=== PATIENT | male | born 1965 | race Caucasian/White ===

== ENCOUNTER → 2017-05-30 10:41 | Outpatient (POV) | payer OTHER, SELFPAY | PROVIDERS: Visit Provider Internal Medicine | DX: Z00.00 Encounter for general adult medical examination without abnormal findings (principal) ==

== ENCOUNTER → 2017-06-01 09:11 | Outpatient (REF) | payer OTHER, SELFPAY ==
[2017-06-01 17:54] LABS: Hemoglobin A1C 7.6 % (0.0-7.0)
[2017-06-01 17:55] LABS: Alanine Aminotransferase 24 U/L (12-78); Albumin Level 4.3 gm/dL (3.4-5.0); Albumin/Globulin Ratio 1.1 (1.1-1.8); Alkaline Phosphatase 95 U/L (46-116); Aspartate Amino Transferase 4 U/L (15-37); Bilirubin,Total 0.4 mg/dL (0.2-1.0); Blood Urea Nitrogen 16 mg/dL (7-18); Calcium 9.2 mg/dL (8.5-10.1); Carbon Dioxide 26 mmol/L (21.0-32.0); Chloride 100 mmol/L (98-107); Chol/HDL Ratio 4.5 (1-3.5); Cholesterol 242 mg/dL (140-200); Creatinine,Serum 1.03 mg/dL (0.70-1.30); Estimated Glomerular Filt Rate 76 ml/min (>60); GFR (African American) 92 ML/MIN (>60); Globulin 3.8 gm/dl (1.3-3.2); Glucose 192 mg/dL (74-106); HDL Cholesterol 54 mg/dL (27-67); LDL Cholesterol 146 mg/dL (0-130); Sodium 136 mmol/L (136-145); Total Protein,Serum 8.1 gm/dL (6.4-8.2); Triglycerides 211 mg/dL (30-200); VLDL Cholesterol 42 mg/dL (0-40)
[2017-06-03 18:00] LABS: Vitamin D 25 Hydroxy 16.6 ng/mL (30.0-100.0)
== END ==
LOC: LAB 09:11
PROVIDERS: Visit Provider Nurse Practitioner Family
DX: R53.83 Other fatigue (principal); I10 Essential (primary) hypertension; E11.9 Type 2 diabetes mellitus without complications; J44.9 Chronic obstructive pulmonary disease, unspecified
CPT/HCPCS: 80053; 80061; 82652; 83036

== ENCOUNTER → 2017-06-07 10:27 | Outpatient (CLI) | payer OTHER, SELFPAY ==
--- NOTE | 2017-06-07 10:30 | XR_ITS ---
XR shoulder RT min 2V HISTORY: Right shoulder pain ITS.REASON: pain ORDERING PHYSICIAN: Kamila Peña PATIENT AGE: 51 years COMPARISON: None FINDINGS: There are mild osteoarthritic changes of the acromioclavicular joint with mild bony hypertrophy which may result in impingement upon the supraspinatus tendon and may be better evaluated with MRI if clinically warranted. The glenohumeral joint has an unremarkable appearance. No fracture or dislocation. No lytic or blastic change. IMPRESSION: Mild acromioclavicular arthropathy with hypertrophic changes of the AC joint.
--- NOTE | 2017-06-07 10:38 | XR_ITS ---
XR chest 2V HISTORY: ITS.REASON: CHRONIC OBSTRUCTIVE PULMONARY DISEASE ORDERING PHYSICIAN: Kamila Peña PATIENT AGE: 51 years COMPARISON: None available FINDINGS: The cardiomediastinal silhouette and pulmonary vascularity are within normal limits. There is hyperinflation with hyperlucency consistent with obstructive chronic bronchitis The lungs are clear without infiltrates, suspicious nodules, or pleural effusions. There is a faint nodular opacity overlying the right lower chest to 6 interspace and may be due to nipple shadow may be confirmed with follow-up if clinically warranted. No acute bony abnormalities. IMPRESSION: COPD. No acute finding. Possible nipple shadow right lower chest
== END ==
PROVIDERS: PCP Emergency Medicine; Referring Provider Nurse Practitioner Family; Visit Provider Nurse Practitioner Family
DX: M25.511 Pain in right shoulder (principal)
CPT/HCPCS: 71046; 73030

== ENCOUNTER → 2017-08-31 15:54 | Outpatient (REF) | payer OTHER, SELFPAY ==
[2017-08-31 19:08] LABS: Hemoglobin A1C 9.3 % (0.0-7.0)
== END ==
LOC: LAB 15:54
PROVIDERS: Visit Provider Nurse Practitioner Family
DX: E11.9 Type 2 diabetes mellitus without complications (principal)
CPT/HCPCS: 83036

== ENCOUNTER → 2017-09-05 08:55 | Outpatient (POV) | payer OTHER, SELFPAY | PROVIDERS: Family Provider Emergency Medicine; PCP Emergency Medicine; Visit Provider Internal Medicine | DX: Z00.00 Encounter for general adult medical examination without abnormal findings (principal) ==

== ENCOUNTER → 2017-09-05 09:55 | Outpatient (CLI) | payer OTHER, SELFPAY ==
--- NOTE | 2017-09-05 10:03 | XR_ITS ---
XR chest 2V HISTORY: ITS.REASON: COPD,CURRENT SMOKER,ABNORMAL CXR ORDERING PHYSICIAN: Vernell Samayoa PATIENT AGE: 51 years COMPARISON: 06/07/2017 FINDINGS: The cardiomediastinal silhouette and pulmonary vascularity are within normal limits. No lobar consolidation or collapse. Previously noted nodular opacity overlying the right lower lung zone is not apparent on today's exam and may be due to nipple shadow or nipple artifact. The lungs are clear. Mild hyperinflation consistent with COPD. No acute bony anomalies. IMPRESSION: No acute finding. Previously noted nodular opacity right lower lung zone no longer apparent COPD
== END ==
PROVIDERS: PCP Emergency Medicine; Visit Provider Nurse Practitioner Family
DX: J44.9 Chronic obstructive pulmonary disease, unspecified (principal); R93.8 Abnormal findings on diagnostic imaging of other specified body structures; F17.200 Nicotine dependence, unspecified, uncomplicated
CPT/HCPCS: 71046

== ENCOUNTER → 2017-11-28 16:24 | Outpatient (CLI) | payer OTHER, SELFPAY | PROVIDERS: Visit Provider Nurse Practitioner Family | DX: E11.9 Type 2 diabetes mellitus without complications (principal) ==

== ENCOUNTER → 2018-03-15 12:37 | Outpatient (CLI) | payer OTHER, SELFPAY ==
--- NOTE | 2018-03-15 12:39 | US_ITS ---
US gallbladder Ordering Physician: Kamila Peña Patient Age: 52 years: Male HISTORY: ITS.REASON: pain Nausea vomiting x2 weeks. Upper abdominal pain TECHNIQUE: COMPARISON :CT abdomen and pelvis from March 14, 2018. FINDINGS Pancreas. Fair visualization of pancreas. The head body and medial tail appear grossly satisfactory. No hepatic ductal dilatation. No fluid collection or mass Gallbladder. Small contracted appearance of the gallbladder itself down to 5 cm. with prominent diffuse mildly echogenic edematous gallbladder wall thickening-accounting for the low density appearance on yesterday CT. . ( But no pericholecystic fluid otherwise. No gallstones identified. Scant debris in gallbladder. Comment. Diffuse wall thickening of most typically seen with cholecystitis but can be seen with other hepatobiliary abnormalities.. No associated periportal edema.) Common duct appears normal at hilum of liver measuring less than 2.5 mm. Liver. Liver appears overall satisfactory. Perhaps trace diffuse fatty changes but no focal lesion. No biliary ductal dilatation. Portal vein normal caliber and normal direction flow Right kidney.: Normal size measuring 12.3 cm length. Cortex well-maintained with no hydronephrosis nor mass. No free fluid at Morison's pouch or elsewhere encountered IMPRESSION: ...... Gallbladder. Contracted gallbladder with Prominent diffuse edematous wall thickening . No gallstones evident . Common duct normal caliber . Liver. No significant findings. Only question perhaps subtle diffuse fatty changes. ... Right kidney and pancreas unremarkable
== END ==
PROVIDERS: PCP Nurse Practitioner Family; Visit Provider Nurse Practitioner Family
DX: R10.11 Right upper quadrant pain (principal); R11.2 Nausea with vomiting, unspecified
CPT/HCPCS: 76705

== ENCOUNTER → 2018-03-20 13:39 | Outpatient (CLI) | payer OTHER, SELFPAY ==
[2018-03-20 14:07] LABS: Basophils % 0.6 % (0.1-2.0); Eosinophils # 0.1 K/mm3 (0.0-0.4); Eosinophils % 0.9 % (0.1-12.0); Hematocrit 42.2 % (42.0-52.0); Hemoglobin 13.3 g/dL (14.1-18.0); Lymphocytes # 1.9 K/mm3 (0.7-4.5); Lymphocytes % 29.6 % (10-50); Mean Corpuscular HGB Conc 31.6 g/dL (31.8-35.4); Mean Corpuscular Hemoglobin 29.1 pg (27.0-31.2); Mean Corpuscular Volume 92.2 fl (80-94); Mean Platelet Volume 7.3 fl (7.4-10.4); Monocytes # 0.4 K/mm3 (0.1-1.0); Monocytes % 6.1 % (1.7-9.3); Neutrophils % 62.8 % (37.0-80.0); Platelet Count 285 K/mm3 (142-424); Red Blood Count 4.58 M/mm3 (4.60-6.20); Red Cell Distribution Width 14.6 % (11.5-17.5); White Blood Count 6.4 K/mm3 (4.8-10.8)
[2018-03-20 14:18] LABS: INR 1.11 (0.9-1.1); Prothrombin Time 11.4 seconds (9.4-11.8)
[2018-03-20 14:54] LABS: Alanine Aminotransferase 301 U/L (12-78); Albumin Level 2.3 gm/dL (3.4-5.0); Albumin/Globulin Ratio 0.5 (1.1-1.8); Alkaline Phosphatase 288 U/L (46-116); Anion Gap 14.7 mEq/L (5-15); Aspartate Amino Transferase 208 U/L (15-37); Bilirubin,Total 4.2 mg/dL (0.2-1.0); Blood Urea Nitrogen 14 mg/dL (7-18); Calcium 8.1 mg/dL (8.5-10.1); Carbon Dioxide 26 mmol/L (21.0-32.0); Chloride 96 mmol/L (98-107); Creatinine,Serum 1.26 mg/dL (0.70-1.30); Estimated Glomerular Filt Rate 60 ml/min (>60); GFR (African American) 72 ML/MIN (>60); Globulin 4.9 gm/dl (1.3-3.2); Glucose 293 mg/dL (74-106); Potassium 4.7 mmoL/L (3.5-5.1); Sodium 132 mmol/L (136-145); Total Protein,Serum 7.2 gm/dL (6.4-8.2)
== END ==
PROVIDERS: Visit Provider Nurse Practitioner Family
DX: R17 Unspecified jaundice (principal); R79.1 Abnormal coagulation profile
CPT/HCPCS: 36415; 80053; 85025; 85610

== ENCOUNTER → 2018-04-06 12:08 | Outpatient (CLI) | payer OTHER, SELFPAY ==
[2018-04-06 13:49] LABS: Hemoglobin A1C 8.1 % (0.0-7.0)
[2018-04-06 13:55] LABS: Alanine Aminotransferase 202 U/L (12-78); Albumin Level 3.1 gm/dL (3.4-5.0); Albumin/Globulin Ratio 0.7 (1.1-1.8); Alkaline Phosphatase 187 U/L (46-116); Anion Gap 16.4 mEq/L (5-15); Aspartate Amino Transferase 96 U/L (15-37); Bilirubin,Total 1.3 mg/dL (0.2-1.0); Blood Urea Nitrogen 17 mg/dL (7-18); Carbon Dioxide 24 mmol/L (21.0-32.0); Chloride 100 mmol/L (98-107); Creatinine,Serum 0.96 mg/dL (0.70-1.30); Estimated Glomerular Filt Rate 82 ml/min (>60); GFR (African American) 99 ML/MIN (>60); Globulin 4.7 gm/dl (1.3-3.2); Potassium 4.4 mmoL/L (3.5-5.1); Sodium 136 mmol/L (136-145); Total Protein,Serum 7.8 gm/dL (6.4-8.2)
[2018-04-06 14:39] LABS: Glucose 343 mg/dL (74-106)
== END ==
PROVIDERS: Visit Provider Nurse Practitioner Family
DX: E11.9 Type 2 diabetes mellitus without complications (principal); R94.5 Abnormal results of liver function studies
CPT/HCPCS: 36415; 80053; 83036

== ENCOUNTER → 2018-07-31 15:16 | Outpatient (CLI) | payer OTHER, SELFPAY ==
[2018-07-31 15:28] LABS: Basophils # 0.1 K/mm3 (0-0.2); Basophils % 0.7 % (0.1-2.0); Eosinophils # 0.3 K/mm3 (0.0-0.4); Eosinophils % 3.3 % (0.1-12.0); Hematocrit 46.7 % (42.0-52.0); Lymphocytes # 2.8 K/mm3 (0.7-4.5); Lymphocytes % 30.1 % (10-50); Mean Corpuscular HGB Conc 34.2 g/dL (31.8-35.4); Mean Corpuscular Hemoglobin 30.4 pg (27.0-31.2); Mean Corpuscular Volume 88.9 fl (80-94); Mean Platelet Volume 8.4 fl (7.4-10.4); Monocytes # 0.5 K/mm3 (0.1-1.0); Monocytes % 5.7 % (1.7-9.3); Neutrophils # 5.6 K/mm3 (1.8-7.8); Neutrophils % 60.1 % (37.0-80.0); Platelet Count 257 K/mm3 (142-424); Red Blood Count 5.25 M/mm3 (4.60-6.20); Red Cell Distribution Width 13.3 % (11.5-17.5); White Blood Count 9.3 K/mm3 (4.8-10.8)
[2018-07-31 16:27] LABS: Alanine Aminotransferase 35 U/L (12-78); Albumin/Globulin Ratio 1.2 (1.1-1.8); Alkaline Phosphatase 79 U/L (46-116); Anion Gap 17.4 mEq/L (5-15); Aspartate Amino Transferase 29 U/L (15-37); Bilirubin,Total 0.4 mg/dL (0.2-1.0); Blood Urea Nitrogen 14 mg/dL (7-18); Calcium 9.2 mg/dL (8.5-10.1); Carbon Dioxide 23 mmol/L (21.0-32.0); Chloride 104 mmol/L (98-107); Estimated Glomerular Filt Rate 70 ml/min (>60); GFR (African American) 85 ML/MIN (>60); Globulin 3.3 gm/dl (1.3-3.2); Glucose 199 mg/dL (74-106); Potassium 4.4 mmoL/L (3.5-5.1); Sodium 140 mmol/L (136-145); Total Protein,Serum 7.3 gm/dL (6.4-8.2)
[2018-07-31 17:01] LABS: Hemoglobin A1C 10.2 % (0.0-7.0)
== END ==
PROVIDERS: Visit Provider Emergency Medicine
DX: E11.9 Type 2 diabetes mellitus without complications (principal); Z79.84 Long term (current) use of oral hypoglycemic drugs
CPT/HCPCS: 80053; 83036; 85025

== ENCOUNTER → 2019-09-17 13:11 | Outpatient (CLI) | payer OTHER, SELFPAY ==
[2019-09-17 15:42] LABS: Basophils # 0.1 K/mm3 (0-0.2); Basophils % 0.5 % (0.1-2.0); Eosinophils # 0.3 K/mm3 (0.0-0.4); Eosinophils % 3.6 % (0.1-12.0); Hematocrit 47.8 % (42.0-52.0); Hemoglobin 16.5 g/dL (14.1-18.0); Lymphocytes # 2.3 K/mm3 (0.7-4.5); Lymphocytes % 24.4 % (10-50); Mean Corpuscular HGB Conc 34.6 g/dL (31.8-35.4); Mean Corpuscular Hemoglobin 30.1 pg (27.0-31.2); Mean Corpuscular Volume 87.2 fl (80-94); Mean Platelet Volume 9.8 fl (7.4-10.4); Monocytes # 0.6 K/mm3 (0.1-1.0); Monocytes % 5.9 % (1.7-9.3); Neutrophils # 6.1 K/mm3 (1.8-7.8); Neutrophils % 65.6 % (37.0-80.0); Platelet Count 268 K/mm3 (142-424); Red Blood Count 5.48 M/mm3 (4.60-6.20); Red Cell Distribution Width 13.4 % (11.5-17.5); White Blood Count 9.4 K/mm3 (4.8-10.8)
[2019-09-17 15:47] LABS: Alanine Aminotransferase 22 U/L (12-78); Albumin Level 4.8 g/dl (3.5-5.0); Albumin/Globulin Ratio 1.6 (1.1-1.8); Alkaline Phosphatase 89 U/L (38-126); Anion Gap 15.8 mEq/L (5-15); Aspartate Amino Transferase 24 U/L (17-59); Bilirubin,Total 0.6 mg/dl (0.2-1.3); Blood Urea Nitrogen 29 mg/dl (9-20); Carbon Dioxide 27 mmol/L (22.0-30.0); Chloride 98 mmol/L (98-107); Cholesterol 158 mg/dl (140-200); Estimated Glomerular Filt Rate 70 ml/min (>60); GFR (African American) 84 ML/MIN (>60); Glucose 323 mg/dl (74-100); HDL Cholesterol 52 mg/dl (40-60); Potassium 4.8 mmoL/L (3.5-5.1); Sodium 136 mmol/L (136-145); Total Protein,Serum 7.8 g/dl (6.3-8.2); Triglycerides 141 mg/dl (30-150); VLDL Cholesterol 28 mg/dL (0-40)
[2019-09-17 15:59] LABS: C-Reactive Protein 5.6 mg/L (0-4); Direct LDL Cholesterol 104.73 mg/dL (100-129)
[2019-09-17 16:05] LABS: T4 (Thyroxine) 10.2 ug/dl (5.53-11.0)
[2019-09-17 16:18] LABS: Thyroid Stimulating Hormone 1.22 uIU/mL (0.465-4.68)
[2019-09-17 17:14] LABS: Hemoglobin A1C 12.2 % (4.0-6.0)
[2019-09-19 09:13] LABS: Vitamin D 25 Hydroxy 27.3 ng/mL (30.0-100.0)
[2019-09-19 10:14] LABS: Creatinine, Urine 372.3 mg/dL (Not Estab.); Microalbumin, Urine 70.3 ug/mL (Not Estab.)
== END ==
PROVIDERS: Visit Provider Nurse Practitioner Family
DX: E11.9 Type 2 diabetes mellitus without complications (principal); I10 Essential (primary) hypertension; E55.9 Vitamin D deficiency, unspecified; J44.9 Chronic obstructive pulmonary disease, unspecified
CPT/HCPCS: 80053; 80061; 82043; 82570; 82652; 83036; 84436; 84443; 85025; 86140

== ENCOUNTER 2020-02-07 22:36 | Emergency (ER) | payer OTHER, SELFPAY ==
[2020-02-07 22:37] VITALS: BP 128/99; PULSE 116; RESP 16; TEMP 36.8; O2SAT 95; BMI 32.1
--- NOTE | 2020-02-07 22:52 | XR_ITS ---
PROCEDURE: XR CHEST 2V CLINICAL HISTORY: syncope/fall Smoker, fall with injury and pain, trauma protocol COMPARISON: CR CXR CHEST(2 VIEWS-NOT PORTABLE) from 01/01/2016 DX CXR2V XR chest 2V from 06/07/2017 CR CXR2V XR chest 2V from 09/05/2017 FINDINGS: The cardiomediastinal silhouette and pulmonary vascularity are within normal limits. The lungs are clear without infiltrates, suspicious nodules, or pleural effusions. No acute bony abnormalities. IMPRESSION: No acute findings. Dictated by: Cruz Cheung MD 02/08/2020 08:19 Cruz Cheung MD in [facility] 02/08/2020 08:19
--- NOTE | 2020-02-07 22:52 | CT_ITS ---
PROCEDURE: CT HEAD/BRAIN WO CON CLINICAL INDICATION: syncopal episode Head injury with headache/pain, contusion, abrasion or hematoma COMPARISON: No exams were available for comparison TECHNIQUE: Axial images obtained. All CT scans at the facility use one or more dose reduction, viz: automated exposure control, ma/kV adjustment per patient size (including targeted exams where dose is matched to indication, i.e. head), or iterative reconstruction technique. FINDINGS: No midline shift, mass effect, intracranial hemorrhage, hydrocephalus, or extra-axial fluid collection is evident. There is some soft tissue swelling in the frontal region of the scalp on the left the calvarium has an unremarkable appearance. No mastoid effusion. No sinus air-fluid level. IMPRESSION: 1. No acute intracranial findings. 2. Small left frontal scalp hematoma Dictated by: Cruz Cheung MD 02/08/2020 09:41 Cruz Cheung MD in [facility] 02/08/2020 09:41
--- NOTE | 2020-02-07 22:53 | XR_ITS ---
PROCEDURE: XR PELVIS 1-2V CLINICAL INDICATION: fall Pain following injury COMPARISON: No exams were available for comparison TECHNIQUE: XR Pelvis AP View FINDINGS: No fracture or dislocation is evident. No significant degenerative change. No lytic or blastic change. IMPRESSION: No acute findings. Dictated by: Cruz Cheung MD 02/08/2020 08:21 Cruz Cheung MD in [facility] 02/08/2020 08:21
--- NOTE | 2020-02-07 22:54 | ECG_ITS ---
APPROVED REPORT Exam: Resting ECG HR:114 bpm ECG Measurements Heart Rate 114 AXES NJ 164 P 75 QRSd 74 QRS -45 QT 330 T 56 QTc 454 Conclusion Sinus tachycardia Left axis deviation Pulmonary disease pattern Abnormal ECG Electronically signed by : Geo Luna, 02/09/2020 06:26:32
--- NOTE | 2020-02-07 22:54 | CT_ITS ---
PROCEDURE: CT CERVICAL SPINE WO CON CLINICAL INDICATION: fall Neck injury with pain, contusion/abrasion or hematoma, cervical sprain/strain the COMPARISON: No exams were available for comparison TECHNIQUE: Axial images obtained with sagittal and coronal reformats. All CT scans at the facility use one or more dose reduction, viz: automated exposure control, ma/kV adjustment per patient size (including targeted exams where dose is matched to indication, i.e. head), or iterative reconstruction technique. Axial spiral CT scanning performed of the cervical spine beginning at the base of the skull and continuing to the upper T-spine. 3-D multiplanar reconstruction with 3-D manipulation of volumetric data set in image rendering was completed by the radiologist and/or technologist with the supervision of the radiologist on independent workstation. FINDINGS: Normal alignment. No acute fracture or dislocation. There is mild cervical spondylosis. C2-C3: Mild right foraminal narrowing from facet and uncovertebral hypertrophy. C3-C4: Degenerate disc disease with left-sided uncovertebral hypertrophy and left-sided foraminal narrowing. C4-C5: Degenerate disc disease with uncovertebral hypertrophy on the left with foraminal narrowing and canal stenosis. C5-C6: Degenerate disc disease with endplate ridging and bulging disc with severe canal stenosis of 8 mm and severe bilateral lateral recess and foraminal narrowing. C6-C7: Degenerate disc disease with endplate ridging with severe canal stenosis of 8 mm and severe left lateral recess and foraminal narrowing and moderate right foraminal narrowing. Scattered small nodes are present in the neck.. Mild prominence of the tonsils. Paraseptal emphysematous changes in the lung apices IMPRESSION: 1. No acute fracture. 2. Multilevel cervical spondylosis with canal stenosis and lateral recess and foraminal narrowing. Please see above for detailed description at each level Dictated by: Cruz Cheung MD 02/08/2020 09:45 Cruz Cheung MD in [facility] 02/08/2020 09:45
[2020-02-07 23:05] VITALS: BP 130/80; BP 138/89; BP 138/91; PULSE 110; PULSE 113; PULSE 114
[2020-02-07 23:20] LABS: Basophils # 0.1 K/mm3 (0-0.2); Basophils % 0.3 % (0.1-2.0); Eosinophils # 0.2 K/mm3 (0.0-0.4); Eosinophils % 1.2 % (0.1-12.0); Hematocrit 44.6 % (42.0-52.0); Hemoglobin 15.1 g/dL (14.1-18.0); Lymphocytes # 3.6 K/mm3 (0.7-4.5); Lymphocytes % 18.2 % (10-50); Mean Corpuscular HGB Conc 33.8 g/dL (31.8-35.4); Mean Corpuscular Hemoglobin 30.8 pg (27.0-31.2); Mean Corpuscular Volume 91.3 fl (80-94); Mean Platelet Volume 7.8 fl (7.4-10.4); Monocytes # 0.9 K/mm3 (0.1-1.0); Monocytes % 4.3 % (1.7-9.3); Neutrophils # 14.9 K/mm3 (1.8-7.8); Neutrophils % 75.9 % (37.0-80.0); Platelet Count 249 K/mm3 (142-424); Red Blood Count 4.88 M/mm3 (4.60-6.20); Red Cell Distribution Width 13.3 % (11.5-17.5); White Blood Count 19.6 K/mm3 (4.8-10.8)
[2020-02-07 23:23] LABS: Chloride 98 mmol/L (98-107); Potassium 4.6 mmoL/L (3.5-5.1); Sodium 137 mmol/L (136-145)
[2020-02-07 23:26] LABS: Anion Gap 15.6 mEq/L (5-15); Blood Urea Nitrogen 31 mg/dl (9-20); Calcium 9.5 mg/dl (8.4-10.2); Carbon Dioxide 28 mmol/L (22.0-30.0); Creatinine Clearance Estimated 103 mL/min (50-200); Estimated Glomerular Filt Rate 63 ml/min (>60); GFR (African American) 76 ML/MIN (>60); Glucose 345 mg/dl (74-100)
[2020-02-07 23:32] LABS: Amphetamine/Metha Screen,Urine Negative ng/ml (<1000); Benzodiazepines Screen,Urine Negative ng/ml (<200)
[2020-02-07 23:33] LABS: Barbiturates Screen,Urine Negative ng/ml (<200)
[2020-02-07 23:34] LABS: Cannabinoid Screen,Urine Negative ng/ml (<50); Cocaine Screen,Urine Negative ng/ml (<300); Ethyl Alcohol < 10 mg/dl (0-10)
[2020-02-07 23:35] LABS: Methadone Screen,Urine Negative ng/ml (<300); Opiate Screen,Urine Negative ng/ml (<300)
--- NOTE | 2020-02-07 23:35 | HMH.EDSYNC ---
ED Disposition Clinical Impression: Renal insufficiency, Obesity (BMI 30.0-34.9) Syncopal episodes Qualifiers: Syncope type: unspecified Qualified Code(s): R55 - Syncope and collapse Diabetes mellitus Qualifiers: Diabetes mellitus type: type 2 Diabetes mellitus long-term insulin use: unspecified medical terminologist insulin use status Diabetes mellitus complication status: with other specified complication Qualified Code(s): E11.69 - Type 2 diabetes mellitus with other specified complication Disposition: Home, Self-Care Condition on Discharge: Good Instructions: DI for Syncope in Adults (Fainting) Additional Instructions: no driving or hazardous activity at this time - call pcp monday Referrals: Denny Hussein MD [Primary Care Provider] - - Critical Care Critical Care Time: No Attestation: On 02/07/20, the high probability of a clinically significant, sudden or life threatening deterioration of the following system(s) required my full and direct attention, intervention and personal management. The time I documented below is in addition to time spent performing reported procedures but includes the following listed in this critical care notation. Medical Decision Making - Medical Records Medical records reviewed: Yes: I reviewed the patient's medical records. - Ivan Inquiry Pt receiving controlled substance: No Vital Signs: 02/07/20 22:37 02/07/20 23:05 Temperature 98.2 F Temperature Source Oral Pulse Rate [Left Radial] 116 H Pulse Rate [Orthostatic Lying] 110 H Pulse Rate [Orthostatic Sitting] 113 H Pulse Rate [Orthostatic Standing] 114 H Respiratory Rate 16 Blood Pressure [Orthostatic Lying] 138/91 H Blood Pressure [Orthostatic Sitting] 138/89 Blood Pressure [Orthostatic Standing] 130/80 Blood Pressure [Right Arm] 128/99 H Blood Pressure Mean [Right Arm] 108 Blood Pressure Source [Right Arm] Automatic Cuff Blood Pressure Position [Right Arm] Sitting 02 Sat by Pulse Oximetry 95 Oxygen Delivery Method Room Air - Lab Data Lab results reviewed: Yes: I reviewed the patient's lab results. Lab Results 02/07/20 23:10: WBC 19.6 H, RBC 4.88, Hgb 15.1, Hct 44.6, MCV 91.3, MCH 30.8, MCHC 33.8, RDW 13.3, Plt Count 249, MPV 7.8, Neut % (Auto) 75.9, Lymph % (Auto) 18.2, [place] % (Auto) 4.3, Eos % (Auto) 1.2, Baso % (Auto) 0.3, Neut # (Auto) 14.9 H, Lymph # (Auto) 3.6, [place] # (Auto) 0.9, Eos # (Auto) 0.2, Baso # (Auto) 0.1, Total Counted 100, Neutrophils % (Manual) 79 H, Band Neutrophils % 6.0, Lymphocytes % (Manual) 15, Platelet Estimate Normal, RBC Morphology Normal 02/07/20 23:10: Sodium 137, Potassium 4.6, Chloride 98, Carbon Dioxide 28, Anion Gap 15.6 H, BUN 31 H, Creatinine 1.20, Estimated Creat Clear 103, Estimated GFR 63, Est GFR ( Amer) 76, Glucose 345 H, Calcium 9.5, Troponin I < 0.01 02/07/20 23:10: Urine Opiates Screen Negative, Urine Methadone Screen Negative, Ur Barbituates Screen Negative, Ur Phencyclidine Scrn Negative, Ur Amphetamines Screen Negative, U Benzodiazepines Scrn Negative, Urine Cocaine Screen Negative, U Marijuana (THC) Screen Negative 02/07/20 23:10: Plasma/Serum Alcohol < 10 Result diagrams: 02/07/20 23:10 02/07/20 23:10 Orders (Tests/Meds): ED MEDICATIONS Generic Name Dose Route Start Last Admin Trade Name Freq PRN Reason Stop Dose Admin Sodium Chloride 1,000 mls @ 999 mls/hr 02/07/20 23:15 Sod Chlor 0.9% 1000ml Bag IV 02/08/20 00:15 .Q1H1M [facility] ORDERS Category Date Time Status CT cervical spine wo con Stat Cat Scan 02/07/20 22:[address] head/brain wo con Stat Cat Scan 02/07/20 22:52 Taken XR chest 2V Stat Exams 02/07/20 22:52 Taken XR pelvis 1-2V Stat Exams 02/07/20 22:53 Taken Troponin I Q3H Lab 02/08/20 02:00 Ordered Troponin I Q3H Lab 02/08/20 05:00 Ordered UA [Urinalysis and Microscopic] Stat Lab 02/08/20 00:00 Received - Radiology Data #1 Image(s): Chest, Pelvis Image Reviewed: Yes I reviewed the patient's
[2020-02-07 23:36] LABS: MANUAL DIFFERENTIAL MANUAL DIFFERENTIAL (MANUAL DIFF); Phencyclidine Screen,Urine Negative ng/ml (<25)
[2020-02-07 23:37] VITALS: BP 131/80; PULSE 111; RESP 18; O2SAT 95
[2020-02-07 23:45] LABS: Lymphocytes % 15 % (10-50); Neutrophils % 79 % (42-76); Platelet Estimate Normal; RBC Morphology Normal; Total Cells Counted 100
[2020-02-07 23:49] LABS: Troponin I < 0.01 ng/ml (0.00-0.034)
[2020-02-08] VITALS: BP 128/91; PULSE 108; RESP 18; O2SAT 94
[2020-02-08 00:17] LABS: Microscopic, Urine URINE MICROSCOPIC (MICROSCOPIC)
[2020-02-08 00:24] LABS: Appearance,Urine CLEAR (Clear); Bilirubin,Urine Negative (Negative); Blood, Urine Negative (Negative); Color,Urine YELLOW (Yellow); Glucose,Urine (UA) 3+ (Negative); Ketones,Urine Negative (Negative); Leukocyte Esterase,Urine Negative (Negative); Nitrate,Urine Negative (Negative); PH,Urine 5.5 (5.0-8.5); Protein,Urine Negative (Negative); Specific Gravity, Urine >= 1.030 (1.005-1.030); Urobilinogen,Urine 0.2 EU/dl (0.2)
[2020-02-08 00:29] LABS: Amorphous Sediment,Urine Trace /lpf
[2020-02-08 00:30] VITALS: BP 132/96; PULSE 107; RESP 18; O2SAT 94
--- NOTE | 2020-02-08 00:52 | PC.NURSE ---
RESP. at bedside applying holter monitor
[2020-02-08 01:06] VITALS: BP 136/95; PULSE 105; RESP 16; TEMP 36.7; O2SAT 95
== END 2020-02-08 01:14 | disposition home or self-care (01) ==
PROVIDERS: Emergency Provider Emergency Medicine; PCP Emergency Medicine
DX: N28.9 Disorder of kidney and ureter, unspecified (principal); E66.9 Obesity, unspecified; Z68.32 Body mass index [BMI] 32.0-32.9, adult; E11.65 Type 2 diabetes mellitus with hyperglycemia; I10 Essential (primary) hypertension; E78.5 Hyperlipidemia, unspecified; J44.9 Chronic obstructive pulmonary disease, unspecified; Z79.899 Other long term (current) drug therapy; F17.210 Nicotine dependence, cigarettes, uncomplicated; Z88.0 Allergy status to penicillin
CPT/HCPCS: 70450; 71046; 72125; 72170; 80048; 80305; 81001; 84484; 85007; 85025; 93005; 93225; 93226; 99284

== ENCOUNTER → 2020-02-27 07:20 | Outpatient (CLI) | payer OTHER, SELFPAY ==
--- NOTE | 2020-02-27 | CT_ITS ---
PROCEDURE: CT CHEST WO CON CLINICAL INDICATION: SYNCOPE patient passed out twice in one month. full cardiac workup. no pain COMPARISON: CT [id number] CT abdomen pelvis w con from 03/14/2018 TECHNIQUE: Axial images obtained with sagittal and coronal reformats. All CT scans at the facility use one or more dose reduction, viz: automated exposure control, ma/kV adjustment per patient size (including targeted exams where dose is matched to indication, i.e. head), or iterative reconstruction technique. FINDINGS: HEART AND MEDIASTINAL STRUCTURES: No mediastinal or hilar mass or adenopathy. Coronary artery calcifications are present. There are calcified nodes in the mediastinum and ludwig. There is mild thickening of the distal esophagus which is nonspecific. LUNGS AND PLEURAL SPACES: Changes of COPD with evidence of old granulomatous disease. Is a 6 mm nodule within the superior aspect of the right lower lobe laterally. This may be some very slightly larger compared to 03/14/[address] Continued follow-up is suggested. Calcified granuloma is present in the left lower lobe. A 3 mm nodules present the left lower lobe laterally and 1 in the left lower lobe centrally at the diaphragm area. There is some bronchial thickening in the left perihilar region not significantly changed. BONY STRUCTURES: Degenerative changes thoracic spine UPPER ABDOMEN: Left adrenal gland is enlarged. The density however favors an adenoma. This is not significantly changed. ADDITIONAL FINDINGS: No other significant abnormalities. IMPRESSION: 1. COPD with old granulomatous disease. 2. 6 mm noncalcified nodule right lower lobe which appears slightly larger from 03/14/2018. This could be related to the slice orientation. Six-month follow-up suggested. 3. Coronary artery calcifications are present. 4. Left adrenal adenoma 5. Mild thickening of the distal esophagus nonspecific but could be related to esophagitis Dictated by: Cruz Cheung MD 02/28/2020 08:48 Cruz Cheung MD in [facility] 02/28/2020 08:48
--- NOTE | 2020-02-27 07:24 | CA_ITS ---
APPROVED REPORT EXAM: Comprehensive 2D, Doppler, and color-flow Echocardiogram Personal Health Coach: Yamel Braun RDCS Ht: 5 ft 11 in Wt: 231lbs BSA: 2.24 BP: 107/69 mmHg Indications: SYNCOPE COPD HTN DM SOA 2D Dimensions LVOT 2.07 cm (M/F) 1.5-2.5 M-Mode Dimensions RVDd 2.62 cm (0.9-2.6) LA Diam 3.71 cm (1.9-4.0) LVDd 4.51 cm (3.5-5.7) Ao Diam 3.71 cm (2.0-3.7) LVDs 3.38 cm (3.5-5.7) IVSd 1.21 cm (0.6-1.1) PWd 1.13 cm (0.6-1.1) EF (Teich) 49.60% FS 25.10% EDV (Teich) 92.90 mL ESV (Teich) 46.80 mL LV Diastology E Decel Time 180.00 (160-240 msec) E/A Ratio 1.0 MED E' 6.20 (< 7 cm/sec) E'/MED E' Ratio 11.00 (>14) LAT E' 9.60 (<10 cm/sec) E/LAT E' Ratio 7.10 (>14) Mitral Valve MV E Max Josh. 68.00 (40-130 cm/s) MV A Velocity 65.00 (40-130 cm/s) E/A Ratio 1.05 MV Decel. Time 180.00 (160-240 ms) MV PHT 53.00 ms Left Ventricle Atrium is mildly enlarged, left ventricle is normal size, mild concentric left ventricular hypertrophy, visually estimated ejection fraction 55% with no regional wall motion abnormality, grade 1 diastolic dysfunction seen without tissue Doppler evidence of raise left atrial pressure. Right Ventricle Right atrium and right ventricle are normal size and contractility. Aortic Valve Aortic valve is minimally thickened and fibrosed, there is no aortic stenosis or aortic insufficiency. Mitral Valve Mitral valve is grossly normal, there is trace mitral regurgitation. Tricuspid Valve Tricuspid valve grossly normal, there is trace tricuspid regurgitation. Tricuspid regurgitation jet velocity is inadequate for calculation of the right ventricular systolic pressure. Pulmonic Valve Pulmonic valve is poorly visualized. Great Vessels Aortic root is normal size. Pericardium No significant pericardial effusion noted. Conclusion 1. Mildly enlarged left atrium, normal left ventricular size, mild concentric left ventricular hypertrophy, visually estimated ejection fraction 55% with no regional wall motion abnormality, grade 1 diastolic dysfunction seen without tissue Doppler evidence of raise left atrial pressure. 2. Trace mitral and tricuspid regurgitation. 3. No significant pericardial effusion noted. Electronically signed by : Julito Gonzalez, 02/27/2020 11:52:28
== END ==
PROVIDERS: PCP Emergency Medicine; Visit Provider Physician Assistant
DX: J44.9 Chronic obstructive pulmonary disease, unspecified (principal); R55 Syncope and collapse
CPT/HCPCS: 71250; 93306

== ENCOUNTER → 2020-03-14 10:44 | Outpatient (CLI) | payer OTHER, SELFPAY ==
[2020-03-14 11:19] LABS: Basophils # 0.1 K/mm3 (0-0.2); Basophils % 0.6 % (0.1-2.0); Eosinophils # 0.3 K/mm3 (0.0-0.4); Eosinophils % 2.8 % (0.1-12.0); Hematocrit 50.3 % (42.0-52.0); Hemoglobin 16.1 g/dL (14.1-18.0); Lymphocytes # 1.9 K/mm3 (0.7-4.5); Lymphocytes % 19.1 % (10-50); Mean Corpuscular Hemoglobin 30.3 pg (27.0-31.2); Mean Corpuscular Volume 94.8 fl (80-94); Mean Platelet Volume 8.3 fl (7.4-10.4); Monocytes # 0.5 K/mm3 (0.1-1.0); Monocytes % 5.2 % (1.7-9.3); Neutrophils # 7.3 K/mm3 (1.8-7.8); Neutrophils % 72.4 % (37.0-80.0); Platelet Count 284 K/mm3 (142-424); Red Blood Count 5.31 M/mm3 (4.60-6.20); Red Cell Distribution Width 13.7 % (11.5-17.5); White Blood Count 10.1 K/mm3 (4.8-10.8)
[2020-03-14 12:44] LABS: Coronavirus 19 IgG Antibody Negative (Negative); Coronavirus 19 IgM Antibody Negative (Negative)
[2020-03-14 13:29] LABS: Chloride 92 mmol/L (98-107); Sodium 134 mmol/L (136-145)
[2020-03-14 13:32] LABS: Alanine Aminotransferase 17 U/L (12-78); Albumin Level 4.8 g/dl (3.5-5.0); Albumin/Globulin Ratio 1.8 (1.1-1.8); Alkaline Phosphatase 89 U/L (38-126); Aspartate Amino Transferase 21 U/L (17-59); Bilirubin,Total 0.6 mg/dl (0.2-1.3); Blood Urea Nitrogen 23 mg/dl (9-20); Calcium 9.9 mg/dl (8.4-10.2); Carbon Dioxide 32 mmol/L (22.0-30.0); Estimated Glomerular Filt Rate 78 ml/min (>60); GFR (African American) 94 ML/MIN (>60); Globulin 2.6 g/dL (1.3-3.2); Total Protein,Serum 7.4 g/dl (6.3-8.2)
[2020-03-14 13:57] LABS: Anion Gap 15.9 mEq/L (5-15)
[2020-03-14 14:00] LABS: Glucose 389 mg/dl (74-100); Potassium 5.9 mmoL/L (3.5-5.1)
== END ==
PROVIDERS: Visit Provider Internal Medicine
DX: I25.10 Atherosclerotic heart disease of native coronary artery without angina pectoris (principal); Z01.818 Encounter for other preprocedural examination
CPT/HCPCS: 36415; 80053; 85025; 86328

== ENCOUNTER 2020-03-16 08:11 | Day surgery (SDC) | payer OTHER, SELFPAY ==
[2020-03-16] VITALS (13 sets, daily range): BP systolic 101–154; BP diastolic 70–95; PULSE 72–94; RESP 15–20; TEMP 36.8; O2SAT 88–98; BMI 32.2
--- NOTE | 2020-03-16 07:31 | IR_ITS ---
APPROVED REPORT Patient Location: Outpatient Learning And Development Director: CASSIE Howard RT (R) PROCEDURES Left heart catheterization Left ventriculogram Selective coronary angiogram INDICATION Coronary artery disease, Angina pectoris Informed consent was obtained prior to the procedure. COMPLICATIONS none Estimated Blood Loss: less than 10 mls TECHNIQUE One percent lidocaine used to anesthetize the right anterior aspect of the wrist. The right radial artery was accessed via the Seldinger technique. A 6 Malian sheath was placed in the right radial artery. 2.5 mg of verapamil, 800 mcg of nitroglycerin, 1mg Lidocaine and 5000 U Heparin were given through the arterial sheath. The trap catheter was also used to perform left heart catheterization, left ventriculogram and selective coronary angiogram. At the end of the procedure the sheath was removed good hemostasis was achieved using Traclet band, patient was transferred to the postop holding area in stable condition. 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 The mid LAD is tortuous and has 20% stenoses along tortuous bands. A large first diagonal artery has a proximal 40 to 50% stenosis and is 2 mm in diameter. The circumflex artery Nondominant large and normal The right coronary artery Dominant with mild 10% mid vessel luminal irregularities The RAYA ventriculogram reveals Normal 65% The left ventricular end-diastolic pressure 20 mmHg IMPRESSION Mild nonflow known coronary disease in the main 3 arteries with moderate nonflow limiting disease and a 2 mm first diagonal artery Normal ejection fraction Mild elevated LVEDP PLAN 1. Medical management with risk factor modification Electronically signed by : Ubaldo [place], 03/16/2020 10:29:43
[2020-03-16 08:57] LABS: Potassium 4.9 mmoL/L (3.5-5.1)
[2020-03-16 09:07] LABS: Chloride 99 mmol/L (98-107); Potassium 4.9 mmoL/L (3.5-5.1); Sodium 136 mmol/L (136-145)
[2020-03-16 09:10] LABS: Anion Gap 13.9 mEq/L (5-15); Blood Urea Nitrogen 23 mg/dl (9-20); Calcium 9.7 mg/dl (8.4-10.2); Carbon Dioxide 28 mmol/L (22.0-30.0); Creatinine Clearance Estimated 137 mL/min (50-200); Estimated Glomerular Filt Rate 88 ml/min (>60); GFR (African American) 106 ML/MIN (>60); Glucose 223 mg/dl (74-100)
== END 2020-03-16 13:53 | disposition home or self-care (01) ==
LOC: CATHLAB 08:12
PROVIDERS: PCP Emergency Medicine; Visit Provider Internal Medicine
DX: E66.9 Obesity, unspecified; E78.5 Hyperlipidemia, unspecified; F17.200 Nicotine dependence, unspecified, uncomplicated; I10 Essential (primary) hypertension; J44.9 Chronic obstructive pulmonary disease, unspecified; I25.110 Atherosclerotic heart disease of native coronary artery with unstable angina pectoris; R06.00 Dyspnea, unspecified; R55 Syncope and collapse; E11.9 Type 2 diabetes mellitus without complications; Z79.84 Long term (current) use of oral hypoglycemic drugs; Z79.899 Other long term (current) drug therapy; Z79.82 Long term (current) use of aspirin
CPT/HCPCS: 80048; 84132; 93458; 99152; C1725; C1760; C1769; J1644; Q9967

== ENCOUNTER 2020-10-17 13:45 | Inpatient (IN) | payer OTHER, SELFPAY ==
[2020-10-17 13:47] VITALS: BP 159/94; PULSE 107; RESP 18; TEMP 36.4; O2SAT 94; BMI 32.1
--- NOTE | 2020-10-17 13:53 | ECG_ITS ---
APPROVED REPORT Exam: Resting ECG HR:108 bpm ECG Measurements Heart Rate 108 AXES [place] 166 P 67 QRSd 86 QRS -69 QT 330 T 27 QTc 442 Conclusion Sinus tachycardia Left axis deviation Pulmonary disease pattern Septal infarct, age undetermined T wave abnormality, consider anterior ischemia Abnormal ECG Electronically signed by : Geo Luna, 10/18/2020 13:48:38
[2020-10-17 13:54] VITALS: BP 121/75; PULSE 113; RESP 20
--- NOTE | 2020-10-17 14:13 | HMH.EDGENADL ---
ED Disposition Clinical Impression: Hyperglycemia, Hyperkalemia, KHOA (acute kidney injury) Opiate overdose Qualifiers: Encounter type: initial encounter Injury intent: accidental or unintentional Qualified Code(s): T40.601A - Poisoning by unspecified narcotics, accidental (unintentional), initial encounter Rhabdomyolysis Qualifiers: Rhabdomyolysis type: non-traumatic Qualified Code(s): M62.82 - Rhabdomyolysis Leukocytosis Qualifiers: Leukocytosis type: unspecified Qualified Code(s): D72.829 - Elevated white blood cell count, unspecified Disposition: Admitted as Observation Condition on Discharge: Serious - Critical Care Critical Care Time: Yes Attestation: On , the high probability of a clinically significant, sudden or life threatening deterioration of the following system(s) required my full and direct attention, intervention and personal management. The time I documented below is in addition to time spent performing reported procedures but includes the following listed in this critical care notation. Total Critical Care Time: 35 Vital system(s) involved:: Metabolic Failure My critical care processes included: Assessment & monitoring of V/S, Initial and Re-exams, Data Review/Interpretation, Coordinating Care, Medication Orders and management, Documentation Medical Decision Making - Ivan Inquiry Pt receiving controlled substance: No Vital Signs: 10/17/20 13:47 10/17/20 13:54 10/17/20 14:55 Temperature 97.5 F L Temperature Source Oral Pulse Rate 113 H 112 H Pulse Rate [Right] 107 H Respiratory Rate 18 20 13 Blood Pressure 121/75 134/83 Blood Pressure [Right Arm] 159/94 H Blood Pressure Mean [Right Arm] 115 Blood Pressure Source Automatic Cuff Blood Pressure Position Sitting 02 Sat by Pulse Oximetry 94 L 90 L Oxygen Delivery Method Room Air 10/17/20 16:38 Temperature 98.6 F Temperature Source Oral Pulse Rate 98 H Pulse Rate [Right] Respiratory Rate 18 Blood Pressure 121/80 Blood Pressure [Right Arm] Blood Pressure Mean [Right Arm] Blood Pressure Source Blood Pressure Position 02 Sat by Pulse Oximetry Oxygen Delivery Method Room Air - Lab Data Lab Results 10/17/20 14:00: WBC 22.1 H*, RBC 5.17, Hgb 15.5, Hct 47.7, MCV 92.2, MCH 29.9, MCHC 32.4, RDW 14.1, Plt Count 227, MPV 8.0, Neut % (Auto) 91.5 H, Lymph % (Auto) 4.8 L, [place] % (Auto) 3.1, Eos % (Auto) 0.4, Baso % (Auto) 0.3, Neut # (Auto) 20.3 H, Lymph # (Auto) 1.1, [place] # (Auto) 0.7, Eos # (Auto) 0.1, Baso # (Auto) 0.1, Total Counted 100, Neutrophils % (Manual) 82 H, Lymphocytes % (Manual) 11, Monocytes % (Manual) 7, Platelet Estimate Normal, RBC Morphology Normal 10/17/20 14:00: Sodium 134 L, Potassium 6.0 H, Chloride 94 L, Carbon Dioxide 25, Anion Gap 21.0 H, BUN 42 H, Creatinine 1.40 H, Estimated Creat Clear 88, Estimated GFR 53 L, Est GFR ( Amer) 64, Glucose 914 H*, Calcium 8.8, Total Bilirubin 0.5, AST 104 H, ALT 409 H*, Alkaline Phosphatase 146 H, Total Protein 7.1, Albumin 4.3, Globulin 2.8, Albumin/Globulin Ratio 1.5 10/17/20 14:00: Magnesium 2.2, Total Creatine Kinase 233 H, Troponin I 0.05 H 10/17/20 14:00: Plasma/Serum Alcohol < 10 10/17/20 14:00: Acetone Level None detected 10/17/20 14:30: Urine Color Yellow, Urine Appearance Clear, Urine pH 6.0, Ur Specific [place] <= 1.005, Urine Protein Negative, Urine Glucose (UA) 3+, Urine Ketones Negative, Urine Blood 2+, Urine Nitrate Negative, Urine Bilirubin Negative, Urine Urobilinogen 0.2, Ur Leukocyte Esterase Negative, Urine RBC 3-5, Urine WBC None, Ur Squamous Epith Cells None, Urine Bacteria None 10/17/20 14:30: Urine Opiates Screen Negative, Urine Methadone Screen Negative, Ur Barbituates Screen Negative, Ur Phencyclidine Scrn Negative, Ur Amphetamines Screen Negative, U Benzodiazepines Scrn Negative, Urine Cocaine Screen Negative, U Marijuana (THC) Screen Negative 10/17/20 14:33: VBG pH 7.23 L, VBG pCO2 51.0, VBG pO2 52.0 H, VBG HCO3 20.9 L, VBG Total CO2 22.4 L,
[2020-10-17 14:16] LABS: Chloride 94 mmol/L (98-107); Sodium 134 mmol/L (136-145)
[2020-10-17 14:17] LABS: Basophils # 0.1 K/mm3 (0-0.2); Basophils % 0.3 % (0.1-2.0); Eosinophils # 0.1 K/mm3 (0.0-0.4); Eosinophils % 0.4 % (0.1-12.0); Hematocrit 47.7 % (42.0-52.0); Hemoglobin 15.5 g/dL (14.1-18.0); Lymphocytes # 1.1 K/mm3 (0.7-4.5); Lymphocytes % 4.8 % (10-50); Mean Corpuscular HGB Conc 32.4 g/dL (31.8-35.4); Mean Corpuscular Hemoglobin 29.9 pg (27.0-31.2); Mean Corpuscular Volume 92.2 fl (80-94); Monocytes # 0.7 K/mm3 (0.1-1.0); Monocytes % 3.1 % (1.7-9.3); Neutrophils # 20.3 K/mm3 (1.8-7.8); Neutrophils % 91.5 % (37.0-80.0); Platelet Count 227 K/mm3 (142-424); Red Blood Count 5.17 M/mm3 (4.60-6.20); Red Cell Distribution Width 14.1 % (11.5-17.5); White Blood Count 22.1 K/mm3 (4.8-10.8)
[2020-10-17 14:19] LABS: Alanine Aminotransferase 409 U/L (12-78); Albumin Level 4.3 g/dl (3.5-5.0); Albumin/Globulin Ratio 1.5 (1.1-1.8); Alkaline Phosphatase 146 U/L (38-126); Aspartate Amino Transferase 104 U/L (17-59); Bilirubin,Total 0.5 mg/dl (0.2-1.3); Blood Urea Nitrogen 42 mg/dl (9-20); Carbon Dioxide 25 mmol/L (22.0-30.0); Creatinine Clearance Estimated 88 mL/min (50-200); Estimated Glomerular Filt Rate 53 ml/min (>60); GFR (African American) 64 ML/MIN (>60); Globulin 2.8 g/dL (1.3-3.2); MANUAL DIFFERENTIAL MANUAL DIFFERENTIAL (MANUAL DIFF); Total Protein,Serum 7.1 g/dl (6.3-8.2)
[2020-10-17 14:20] LABS: Calcium 8.8 mg/dl (8.4-10.2)
--- NOTE | 2020-10-17 14:24 | PC.NURSE ---
Pt vomited profusely into floor several times.
[2020-10-17 14:29] LABS: Glucose 914 mg/dl (74-100)
--- NOTE | 2020-10-17 14:29 | PC.NURSE ---
MD aware of potassium and glucose critical
[2020-10-17 14:31] LABS: Lymphocytes % 11 % (10-50); Monocytes % 7 % (2-9); Neutrophils % 82 % (42-76); Platelet Estimate Normal; RBC Morphology Normal; Total Cells Counted 100
--- NOTE | 2020-10-17 14:31 | XR_ITS ---
PROCEDURE INFORMATION: Exam: XR Chest Exam date and time: 10/17/2020 2:31 PM Age: 54 years old Clinical indication: Other: Over dose; Additional info: Od TECHNIQUE: Imaging protocol: XR of the chest. Views: 1 view. COMPARISON: CT CHEST WO CON 02/27/2020 7:35 AM FINDINGS: Lungs: Emphysematous change, interstitial prominence, chronic granulomatous disease. Pleural spaces: No pleural effusion. Heart/Mediastinum: No cardiomegaly. Bones/joints: Degenerative change. IMPRESSION: Emphysematous change, interstitial prominence, chronic granulomatous disease.
[2020-10-17 14:35] LABS: Microscopic, Urine URINE MICROSCOPIC (MICROSCOPIC)
[2020-10-17 14:42] LABS: Creatine Kinase 233 U/L (55-170)
[2020-10-17 14:43] LABS: Appearance,Urine CLEAR (Clear); Bilirubin,Urine Negative (Negative); Blood, Urine 2+ (Negative); Color,Urine YELLOW (Yellow); Glucose,Urine (UA) 3+ (Negative); Ketones,Urine Negative (Negative); Leukocyte Esterase,Urine Negative (Negative); Nitrate,Urine Negative (Negative); Protein,Urine Negative (Negative); Specific Gravity, Urine <= 1.005 (1.005-1.030); Urobilinogen,Urine 0.2 EU/dl (0.2)
[2020-10-17 14:43] LABS: Magnesium 2.2 mg/dl (1.6-2.3)
[2020-10-17 14:45] LABS: Acetone, Serum (Rapid) None Detected (None Detect)
[2020-10-17 14:48] LABS: Ethyl Alcohol < 10 mg/dl (0-10)
[2020-10-17 14:54] LABS: Troponin I 0.05 ng/ml (0.00-0.034)
[2020-10-17 14:55] VITALS: BP 134/83; PULSE 112; RESP 13; O2SAT 90
[2020-10-17 14:55] LABS: Benzodiazepines Screen,Urine Negative ng/ml (<200)
[2020-10-17 14:56] LABS: Amphetamine/Metha Screen,Urine Negative ng/ml (<1000)
[2020-10-17 14:57] LABS: Barbiturates Screen,Urine Negative ng/ml (<200); Cannabinoid Screen,Urine Negative ng/ml (<50)
[2020-10-17 15:00] LABS: Opiate Screen,Urine Negative ng/ml (<300)
[2020-10-17 15:01] LABS: Phencyclidine Screen,Urine Negative ng/ml (<25)
[2020-10-17 15:10] LABS: VBG Base Excess -6.7 mmol/L (-2.4-2.3); VBG HCO3 20.9 mmol/L (23-30); VBG Oxygen Saturation 83.5 % (50-70); VBG PH 7.23 mmol/L (7.31-7.41); VBG Total CO2 22.4 mmol/L (23-27)
[2020-10-17 15:15] LABS: Methadone Screen,Urine Negative ng/ml (<300)
[2020-10-17 15:16] LABS: Cocaine Screen,Urine Negative ng/ml (<300)
[2020-10-17 15:17] LABS: Coronavirus 19, PCR Not Detected (NotDetected); Influenza A, PCR Not Detected (NotDetected); Influenza B, PCR Not Detected (NotDetected)
[2020-10-17 15:26] LABS: Lactic Acid 2.2 mmol/L (0.7-2.1)
--- NOTE | 2020-10-17 15:40 | PC.NURSE ---
Glucometer reading HI , blood draw glucose ordered.
--- NOTE | 2020-10-17 16:25 | PC.NURSE ---
Critical lab value: glucose 756. Dr. Shultz notified.
[2020-10-17 16:26] LABS: Glucose,Random 756 mg/dL (74-100)
[2020-10-17 16:31] VITALS: BMI 28.0
[2020-10-17 16:38] VITALS: BP 121/80; PULSE 98; RESP 18; TEMP 37; O2SAT 94
--- NOTE | 2020-10-17 16:57 | PC.NURSE ---
pt arrived to the floor at this time.
[2020-10-17 17:14] LABS: POC Glucose,Bedside 579 (70-110)
[2020-10-17 17:27] VITALS: BP 121/80; PULSE 88; RESP 20; TEMP 37; O2SAT 93
[2020-10-17 17:52] LABS: Glucose,Random 687 mg/dL (74-100)
--- NOTE | 2020-10-17 17:53 | PC.NURSE ---
Spoke to Merary in the lab. Pt glucose is 687. 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
[2020-10-17 18:03] LABS: Troponin I 0.11 ng/ml (0.00-0.034)
--- NOTE | 2020-10-17 18:12 | HMH.HP ---
*Admission Date: 10/17/20 *Chief complaint: elevated glucose,opiate overdose *History of present illness: 54 yr old male presented to ED via ambulance. Per pt he talked to his daughter at 8 am and then she was unable to reach him. at 1130 her boyfriend went back to the house and was still unable to get him to answer the door and called 911 for welfare check. daughter says about 45 mins later they arrived. Pt was found on his kitchen floor unresponsive. Pt admits to snorting heroin yesterday but states none today. Pt states for over one week he has lost feeling in rt arm and leg and having problems using them. Pt states he is taking all his DM meds. pt admitted for elevated KCL, WBC,trop, cre, ABG abnormal and monitoring. [facility] History I have reviewed the patient's past medical history: Yes Medical History: Reports:: Chronic Obstructive Pulmonary Disease (COPD), Diabetes Mellitus Type 2, Hyperlipidemia, Hypertension Denies:: Seizures *Have you ever received a pneumonia vaccine?: No *Have you received a flu vaccine this season?: No Other Surgeries: Yes: Cardiac Catheterization, Other Amputation: No Fractures: Yes - *Social History Smoking Status: Current every day smoker Tobacco Type: cigarettes # Packs/Day (cigarettes): 1 Alcohol Intake: never Alcohol Intake Frequency:: other Substance Use Type: denies use *Occupational Status:: disabled Housing: house Household Members: none *Travel in the last 8 weeks: None Family Hx:: Heart Attack Review of Systems - Review of Systems Review of systems:: pertinent systems reviewed and negative unless documented below - Constitutional Denies body ache(s), Denies fatigue, Denies lack of energy - Eyes Denies change in vision - ENT Denies bleeding gums - *Cardiovascular Denies chest pain at rest, Denies chest pain with activity - *Respiratory Denies chest congestion - *Gastrointestinal Denies belching, Denies bright, red blood in stools - *Genitourinary Denies urinary frequency - *Musculoskeletal Reports muscle weakness, Reports numbness, Reports tingling, Denies joint pain - Integumentary/Breasts Denies rash - *Neurologic Denies headache(s), Denies numbness, Denies weakness - Psychiatric Denies lack of enjoyment, Denies anxiety - Endocrine Denies excessive sweating - Hematologic/Lymphatic Denies easy bruising - Allergic/Immunologic Denies itchy eyes Meds Home Medications Medication Instructions Recorded Confirmed Type aspirin 81 mg tablet,delayed 81 mg PO DAILY #90 tab 01/21/20 10/17/20 Rx release Albuterol Sulfate [Proventil Hfa] 1 puff INHALATION DAILY 02/08/20 10/17/20 History Metformin HCl [Glucophage] 1,000 mg PO BID 02/08/20 10/17/20 History Sitagliptin Phosphate [Januvia] 100 mg PO DAILY 02/08/20 10/17/20 History glipizide 5 mg tablet 5 mg PO DAILY tab 03/09/20 10/17/20 History fluticasone furoate 100 1 inh INHALATION DAILY #60 each 04/05/20 10/17/20 Rx mcg-vilanterol 25 mcg/dose inhalation powder Atorvastatin Calcium [Lipitor 10mg 10 mg PO DAILY 10/17/20 10/17/20 History Tab] lisinopriL [Prinivil 10mg Tablet] 10 mg PO DAILY 10/17/20 10/17/20 History Allergies Allergy/AdvReac Type Severity Reaction Status Date / Time Penicillins [PENICILLINS] Allergy Unknown Verified 03/23/20 12:57 Exam Vital signs and Labs for Last 24 Hours: Temp Pulse Resp BP Pulse Ox 98.6 F 88 20 121/80 93 L 10/17/20 17:27 10/17/20 17:27 10/17/20 17:27 10/17/20 17:27 10/17/20 17:27 Laboratory Results - last 24 hr 10/17/20 14:00: WBC 22.1 H*, RBC 5.17, Hgb 15.5, Hct 47.7, MCV 92.2, MCH 29.9, MCHC 32.4, RDW 14.1, Plt Count 227, MPV 8.0, Neut % (Auto) 91.5 H, Lymph % (Auto) 4.8 L, [place] % (Auto) 3.1, Eos % (Auto) 0.4, Baso % (Auto) 0.3, Neut # (Auto) 20.3 H, Lymph # (Auto) 1.1, [place] # (Auto) 0.7, Eos # (Auto) 0.1, Baso # (Auto) 0.1, Total Counted 100, Neutrophils % (Manual) 82 H, Lymphocytes % (Manual) 11, Monocytes % (Manual) 7, Pl
--- NOTE | 2020-10-17 18:27 | CT_ITS ---
PROCEDURE INFORMATION: Exam: CT Head With Contrast Exam date and time: 10/17/20 06:27 PM Age: 54 years old Clinical indication: Numbness / parasthesia; Patient HX: R/O stroke, right hand not working properly TECHNIQUE: Imaging protocol: Computed tomography of the head with intravenous contrast. Radiation optimization: All CT scans at this facility use at least one of these dose optimization techniques: automated exposure control; mA and/or kV adjustment per patient size (includes targeted exams where dose is matched to clinical indication); or iterative reconstruction. Contrast material: ISOVUE; Contrast volume: 100 ml; Contrast route: IV; COMPARISON: CT HEAD/BRAIN WO CON 02/07/20 11:21 PM FINDINGS: Brain: Unremarkable white matter. No mass effect. No abnormal enhancing lesions. Cerebral ventricles: Unremarkable. No ventriculomegaly. Bones/joints: Unremarkable. No acute fracture. Paranasal sinuses: Visualized sinuses are unremarkable. No fluid levels. Mastoid air cells: Visualized mastoid air cells are well aerated. Soft tissues: Unremarkable. IMPRESSION: No acute intracranial abnormality.
[2020-10-17 19:16] LABS: Reflex Lactic Add Lactic Reflex
[2020-10-17 20:00] VITALS: BP 101/75; PULSE 86; PULSE 90; RESP 16; TEMP 36.4; O2SAT 95
[2020-10-17 21:03] LABS: POC Glucose,Bedside 321 (70-110)
[2020-10-17 21:28] LABS: Chloride 101 mmol/L (98-107)
[2020-10-17 21:29] LABS: Potassium 4.3 mmoL/L (3.5-5.1); Sodium 139 mmol/L (136-145)
[2020-10-17 21:31] LABS: Blood Urea Nitrogen 40 mg/dl (9-20); Creatinine Clearance Estimated 98 mL/min (50-200); Estimated Glomerular Filt Rate 69 ml/min (>60); GFR (African American) 84 ML/MIN (>60)
[2020-10-17 21:32] LABS: Anion Gap 13.3 mEq/L (5-15); Calcium 8.5 mg/dl (8.4-10.2); Carbon Dioxide 29 mmol/L (22.0-30.0); Glucose 391 mg/dl (74-100)
[2020-10-17 21:36] LABS: Lactic Acid Follow Up (RFLX 1) 2.6 mmol/L (0.7-2.1)
[2020-10-17 21:56] LABS: Troponin I 0.11 ng/ml (0.00-0.034)
[2020-10-17 23:23] LABS: Reflex Lactic (2 hrs) Add Lactic Reflex
[2020-10-18] VITALS (10 sets, daily range): BP systolic 116–144; BP diastolic 70–77; PULSE 48–83; RESP 16–20; TEMP 36.5–37; O2SAT 94–100; BMI 28.7
[2020-10-18 01:26] LABS: Lactic Acid Follow up (RFLX 2) 1.5 mmol/L (0.7-2.1)
--- NOTE | 2020-10-18 04:19 | PC.NURSE ---
Pt is A/O x4. No acute changes this shift. Pt slept well all night. Pt's 02 declined to mid 80's while pt was sleeping, applied 2L NC and pt remains in high 90's. IV patent with NS @ 150ml/hr. Pt is able to make needs known to staff. Call light within reach, VSS, no concerns at this time. Will continue to monitor.
[2020-10-18 05:31] LABS: POC Glucose,Bedside 131 (70-110)
--- NOTE | 2020-10-18 08:35 | P.CONPHA_ITS ---
[facility] VTE Monitoring - Patient Demographics Admission date: 10/18/20 Report Date: 10/18/20 Time: 08:35 Allergies/Adverse Reactions: Patient Allergies Penicillins [PENICILLINS] Allergy (Unknown, Verified 03/23/20 12:57) Height: 1.8 m Weight: 93.128 kg Patient Problems: Current Active Problems Opiate overdose (Acute) Hyperglycemia (Acute) Hyperkalemia (Acute) KHOA (acute kidney injury) (Acute) Rhabdomyolysis (Acute) Leukocytosis (Acute) COPD (chronic obstructive pulmonary disease) (Acute) Diabetes mellitus (Chronic) - VTE Risk Labs: VTE Related Lab Results Hgb 15.5 g/dL (14.1-18.0) 10/17/20 14:00 Hct 47.7 % (42.0-52.0) 10/17/20 14:00 Plt Count 227 K/mm3 (142-424) 10/17/20 14:00 BUN 40 mg/dl (9-20) H 10/17/20 20:30 Creatinine 1.10 mg/dl (0.66-1.25) D 10/17/20 20:30 Estimated Creat Clear 98 mL/min (50-200) 10/17/20 20:30 Was VTE Risk Assessment Performed: Yes VTE Score: 3 VTE Risk Level: Low Risk Clinical Trial Participant: No - Prophylaxis VTE Prophylaxis Ordered?: Yes Types of VTE Prophylaxis: TEDS Knee High
[2020-10-18 09:22] LABS: Basophils # 0.1 K/mm3 (0-0.2); Basophils % 0.6 % (0.1-2.0); Eosinophils # 0.2 K/mm3 (0.0-0.4); Eosinophils % 1.9 % (0.1-12.0); Hematocrit 39.3 % (42.0-52.0); Lymphocytes # 2.9 K/mm3 (0.7-4.5); Lymphocytes % 24.6 % (10-50); Mean Corpuscular HGB Conc 33.8 g/dL (31.8-35.4); Mean Corpuscular Hemoglobin 29.8 pg (27.0-31.2); Mean Corpuscular Volume 88.2 fl (80-94); Mean Platelet Volume 8.2 fl (7.4-10.4); Monocytes # 0.5 K/mm3 (0.1-1.0); Monocytes % 4.2 % (1.7-9.3); Neutrophils # 8.2 K/mm3 (1.8-7.8); Neutrophils % 68.7 % (37.0-80.0); Platelet Count 131 K/mm3 (142-424); Red Blood Count 4.46 M/mm3 (4.60-6.20); Red Cell Distribution Width 14.5 % (11.5-17.5); White Blood Count 11.9 K/mm3 (4.8-10.8)
[2020-10-18 09:24] LABS: Hemoglobin 13.3 g/dL (14.1-18.0)
[2020-10-18 09:42] LABS: Anion Gap 8.1 mEq/L (5-15); Blood Urea Nitrogen 31 mg/dl (9-20); Calcium 7.8 mg/dl (8.4-10.2); Carbon Dioxide 32 mmol/L (22.0-30.0); Chloride 98 mmol/L (98-107); Creatinine Clearance Estimated 137 mL/min (50-200); Estimated Glomerular Filt Rate 100 ml/min (>60); GFR (African American) 121 ML/MIN (>60); Glucose 271 mg/dl (74-100); Potassium 4.1 mmoL/L (3.5-5.1); Sodium 134 mmol/L (136-145)
--- NOTE | 2020-10-18 09:42 | HMH.ACPN2 ---
Internal Medicine - PN: Subj *Date: 10/19/20 *Time: 07:36 Interval history: doing better but still with rt sided parasthesia - we discussed drug use Exam Vital signs and Labs for Last 24 Hours: Temp Pulse Resp BP Pulse Ox 97.9 F 72 18 118/74 99 10/18/20 07:29 10/18/20 07:29 10/18/20 07:29 10/18/20 07:29 10/18/20 07:29 Laboratory Results - last 24 hr 10/17/20 14:00: WBC 22.1 H*, RBC 5.17, Hgb 15.5, Hct 47.7, MCV 92.2, MCH 29.9, MCHC 32.4, RDW 14.1, Plt Count 227, MPV 8.0, Neut % (Auto) 91.5 H, Lymph % (Auto) 4.8 L, [place] % (Auto) 3.1, Eos % (Auto) 0.4, Baso % (Auto) 0.3, Neut # (Auto) 20.3 H, Lymph # (Auto) 1.1, [place] # (Auto) 0.7, Eos # (Auto) 0.1, Baso # (Auto) 0.1, Total Counted 100, Neutrophils % (Manual) 82 H, Lymphocytes % (Manual) 11, Monocytes % (Manual) 7, Platelet Estimate Normal, RBC Morphology Normal 10/17/20 14:00: Sodium 134 L, Potassium 6.0 H, Chloride 94 L, Carbon Dioxide 25, Anion Gap 21.0 H, BUN 42 H, Creatinine 1.40 H, Estimated Creat Clear 88, Estimated GFR 53 L, Est GFR ( Amer) 64, Glucose 914 H*, Calcium 8.8, Total Bilirubin 0.5, AST 104 H, ALT 409 H*, Alkaline Phosphatase 146 H, Total Protein 7.1, Albumin 4.3, Globulin 2.8, Albumin/Globulin Ratio 1.5 10/17/20 14:00: Magnesium 2.2, Total Creatine Kinase 233 H, Troponin I 0.05 H 10/17/20 14:00: Plasma/Serum Alcohol < 10 10/17/20 14:00: Acetone Level None detected 10/17/20 14:30: Urine Color Yellow, Urine Appearance Clear, Urine pH 6.0, Ur Specific [place] <= 1.005, Urine Protein Negative, Urine Glucose (UA) 3+, Urine Ketones Negative, Urine Blood 2+, Urine Nitrate Negative, Urine Bilirubin Negative, Urine Urobilinogen 0.2, Ur Leukocyte Esterase Negative, Urine RBC 3-5, Urine WBC None, Ur Squamous Epith Cells None, Urine Bacteria None 10/17/20 14:30: Urine Opiates Screen Negative, Urine Methadone Screen Negative, Ur Barbituates Screen Negative, Ur Phencyclidine Scrn Negative, Ur Amphetamines Screen Negative, U Benzodiazepines Scrn Negative, Urine Cocaine Screen Negative, U Marijuana (THC) Screen Negative 10/17/20 14:33: VBG pH 7.23 L, VBG pCO2 51.0, VBG pO2 52.0 H, VBG HCO3 20.9 L, VBG Total CO2 22.4 L, VBG O2 Saturation 83.5 H, VBG Base Excess -6.7 L 10/17/20 14:50: Lactate 2.2 H 10/17/20 15:00: SARS-CoV-2 (PCR) Not detected, Influenza A Untype (PCR) Not detected, Influenza Type B (PCR) Not detected 10/17/20 15:50: Random Glucose 756 H* 10/17/20 17:05: POC Glucose 579 H* 10/17/20 17:24: Random Glucose 687 H* 10/17/20 17:35: Troponin I 0.11 H 10/17/20 20:30: Troponin I 0.11 H 10/17/20 20:30: Sodium 139, Potassium 4.3 D, Chloride 101, Carbon Dioxide 29, Anion Gap 13.3, BUN 40 H, Creatinine 1.10 D, Estimated Creat Clear 98, Estimated GFR 69, Est GFR ( Amer) 84 D, Glucose 391 H D, Calcium 8.5 10/17/20 20:30: Lactate 2.6 H 10/17/20 20:55: POC Glucose 321 H* 10/18/20 01:12: Lactate 1.5 10/18/20 05:16: POC Glucose 131 H 10/18/20 09:10: WBC 11.9 H D, RBC 4.46 L, Hgb 13.3 L D, Hct 39.3 L, MCV 88.2, MCH 29.8, MCHC 33.8, RDW 14.5, Plt Count 131 L D, MPV 8.2, Neut % (Auto) 68.7, Lymph % (Auto) 24.6, [place] % (Auto) 4.2, Eos % (Auto) 1.9, Baso % (Auto) 0.6, Neut # (Auto) 8.2 H, Lymph # (Auto) 2.9, [place] # (Auto) 0.5, Eos # (Auto) 0.2, Baso # (Auto) 0.1 I & O for Last 24 hours: Intake & Output 10/15/20 10/16/20 10/17/20 10/18/20 11:59 11:59 11:59 11:59 Intake Total 2587 / 2587 Output Total 800 / 800 Balance 1787 / 1787 Weight 205 lb 5 oz - Constitutional no acute distress - *Routine HEENT Exam Head: Present: normocephalic Eye: Present: EOMI, PERRL ENT: Present: mucous membranes dry - *Routine Neck Exam Present: supple - *Routine Respiratory Exam Present: decreased breath sounds, rhonchi - *Routine Cardiovascular Exam Present: RRR, murmur - *Routine Abdominal Exam Present: soft - *Routine Extremities Exam Absent: calf tenderness - *Routine Skin Exam Present: intact - *Routine Neurological Exam Present: alert, or
--- NOTE | 2020-10-18 09:44 | XR_ITS ---
PROCEDURE INFORMATION: Exam: XR Chest Exam date and time: 10/18/2020 9:44 AM Age: 54 years old Clinical indication: Cough TECHNIQUE: Imaging protocol: XR of the chest. Views: 2 views. COMPARISON: CR XR CHEST PORTABLE 10/17/2020 2:47 PM FINDINGS: Tubes, catheters and devices: Overlying EKG wires Lungs: Unremarkable. No consolidation. Pleural spaces: Unremarkable. No pleural effusion. No pneumothorax. Heart/Mediastinum: Unremarkable. No cardiomegaly. Bones/joints: Unremarkable. IMPRESSION: No acute process
[2020-10-18 09:49] LABS: Creatine Kinase 2262 U/L (55-170)
[2020-10-18 11:51] LABS: POC Glucose,Bedside 302 (70-110)
[2020-10-18 16:46] LABS: POC Glucose,Bedside 337 (70-110)
--- NOTE | 2020-10-18 17:54 | PC.NURSE ---
Pt has remained on RA this entire shift w/ o2 sats >90%. Pt has required insulin per sliding scale x2 this shift. Pt has ambulated frequently in his RA independently w/ steady gait and balance. Pt remains NSR on tele. No other acute changes or complaints at this time. Will continue to monitor.
[2020-10-18 20:08] LABS: POC Glucose,Bedside 298 (70-110)
[2020-10-19] VITALS: BP 111/51; PULSE 64; PULSE 80; RESP 18; TEMP 36.6; O2SAT 98
--- NOTE | 2020-10-19 03:17 | PC.NURSE ---
Pt is A/Ox4. Pt has been pleasant this shift. Pt is RA with stats >90. Lungs are CTA. BS are active x4. At beginning of shift pt stated his right hand and right foot feel numb at times. Pt states he made MD aware this morning of the numbness, stated the numbness in the hand has been going on for about a week, but the right foot is a newer onset. Pt has been NS on tele. Admin meds per JUN. Pt is able to make needs known to staff, VSS. Call light within reach, will continue to monitor.
[2020-10-19 04:00] VITALS: BP 112/52; PULSE 68; PULSE 70; RESP 18; TEMP 36.6; O2SAT 98
[2020-10-19 05:18] LABS: POC Glucose,Bedside 375 (70-110)
[2020-10-19 05:19] VITALS: BMI 29.4
[2020-10-19 06:04] VITALS: PULSE 69; PULSE 72
[2020-10-19 07:29] VITALS: BP 121/70; PULSE 92; RESP 18; TEMP 36.9; O2SAT 97
[2020-10-19 08:00] VITALS: PULSE 80
--- NOTE | 2020-10-19 08:00 | CA_ITS ---
APPROVED REPORT EXAM: Comprehensive 2D, Doppler, and color-flow Echocardiogram [employer] Footballer: Liana Nowak CRT Ht: 5 ft 10 in Wt: 205lbs BSA: 2.11 BP: 121/80 mmHg Indications: Chest Pain, OD heroin 2D Dimensions LVOT 2.10 cm (M/F) 1.5-2.5 LA Volume 41.80 mL LA Volume Index 19.80 mL/m2 (M/F) 16-34 M-Mode Dimensions RVDd 3.20 cm (0.9-2.6) LA Diam 3.50 cm (1.9-4.0) LVDd 5.02 cm (3.5-5.7) Ao Diam 4.64 cm (2.0-3.7) LVDs 2.60 cm (3.5-5.7) IVSd 1.28 cm (0.6-1.1) PWd 1.21 cm (0.6-1.1) EF (Teich) 79.40% FS 48.20% EDV (Teich) 119.30 mL TAPSE 2.47 (<1.7) ESV (Teich) 24.60 mL LV Diastology E Decel Time 183.00 (160-240 msec) E/A Ratio 0.98 MED E' 6.10 (< 7 cm/sec) MED A' 8.60 cm/s E'/MED E' Ratio 12.10 (>14) LAT E' 7.00 (<10 cm/sec) LAT A' 11.80 cm/s E/LAT E' Ratio 10.54 (>14) Aortic Valve AO Peak GR. 8.00 mmHg Mitral Valve MV A Velocity 75.00 (40-130 cm/s) E/A Ratio 0.98 MV Decel. Time 183.00 (160-240 ms) Pulmonary Valve PV Peak Velocity 72.00 (50-150 cm/s) Tricuspid Valve TR P. Velocity 192.00 cm/s RAP Estimate 10.00 mmHg RVSP 24.80 mmHg Left Ventricle Left atrium is mildly enlarged, left ventricle is normal size, visually estimated ejection fraction 55% with no regional wall motion abnormality, diastolic parameters are inconclusive. Right Ventricle Right atrium and right ventricle are mildly enlarged with normal contractility. Aortic Valve Aortic valve is minimally thickened and fibrosed, there is no aortic stenosis or aortic insufficiency. Mitral Valve Mitral valve is grossly normal, there is trace mitral regurgitation. Tricuspid Valve Tricuspid valve grossly normal, there is trace tricuspid regurgitation, tricuspid regurgitation jet velocity is inadequate for calculation of the right ventricular systolic pressure. Pulmonic Valve Pulmonic valve is poorly visualized. Great Vessels Aortic root is normal size. Pericardium No significant pericardial effusion noted. Conclusion 1. Mild biatrial abdomen, normal left ventricular size, visually estimated ejection fraction 55% with no regional wall motion abnormality, diastolic parameters are inconclusive. 2. Trace mitral and tricuspid regurgitation. 3. No significant pericardial effusion noted. Electronically signed by : Julito Gonzalez, 10/19/2020 22:28:13
--- NOTE | 2020-10-19 10:37 | HMH.CNCARD ---
History of Present Illness Consult date: 10/19/20 Requesting physician: Denny Hussein Chief complaint: Elevated troponin Additional Medical History:: 1. Diabetes mellitus, type II 2. Tobacco use 3. Left heart catheterization, 03/2020, mild CAD of the main arteries with moderate CAD of diagonal branch. 4. Hypertension 5. Hyperlipidemia 6. History of recreational drug use History of present illness: 54 yr old male presented to ED via ambulance. Per pt he talked to his daughter at 8 am and then she was unable to reach him. at 1130 her boyfriend went back to the house and was still unable to get him to answer the door and called 911 for welfare check. daughter says about 45 mins later they arrived. Pt was found on his kitchen floor unresponsive. Pt admits to snorting heroin yesterday but states none today. Pt states for over one week he has lost feeling in rt arm and leg and having problems using them. Pt states he is taking all his DM meds. pt admitted for elevated KCL, WBC,trop, cre, ABG abnormal and monitoring The above per Dr. Hussein H&P Patient denies any chest pain, pressure or tightness. He confirms use of drugs as noted above. Left heart catheterization from March 2020 shows mild to moderate coronary artery disease. Echocardiogram from today, preliminary results, reveals preserved ejection fraction with no significant valvular heart disease. Elevated troponin most likely related to drug use, transient renal insufficiency along with rhabdomyolysis. Patient was encouraged to discontinue all recreational drug use. [facility] History Medical History: Reports:: Chronic Obstructive Pulmonary Disease (COPD), Diabetes Mellitus Type 2, Hyperlipidemia, Hypertension Denies:: Seizures *Have you ever received a pneumonia vaccine?: No *Have you received a flu vaccine this season?: No Other Surgeries: Yes: Cardiac Catheterization, Other Amputation: No Fractures: Yes - *Social History Smoking Status: Current every day smoker Tobacco Type: cigarettes # Packs/Day (cigarettes): 1 Alcohol Intake: never Alcohol Intake Frequency:: other Substance Use Type: denies use *Occupational Status:: disabled Housing: house Household Members: none *Travel in the last 8 weeks: None Family Hx:: Heart Attack Meds Home Medications Medication Instructions Recorded Confirmed Type aspirin 81 mg tablet,delayed 81 mg PO DAILY #90 tab 01/21/20 10/17/20 Rx release Albuterol Sulfate [Proventil Hfa] 2 puffs INHALATION Q6HP PRN 02/08/20 10/18/20 History Metformin HCl [Glucophage] 1,000 mg PO BID 02/08/20 10/17/20 History Sitagliptin Phosphate [Januvia] 100 mg PO DAILY 02/08/20 10/17/20 History glipizide 5 mg tablet 5 mg PO DAILY tab 03/09/20 10/17/20 History fluticasone furoate 100 1 inh INHALATION DAILY #60 each 04/05/20 10/17/20 Rx mcg-vilanterol 25 mcg/dose inhalation powder Atorvastatin Calcium [Lipitor 10mg 10 mg PO DAILY 10/17/20 10/17/20 History Tab] lisinopriL [Prinivil 10mg Tablet] 10 mg PO DAILY 10/17/20 10/17/20 History Allergies Allergy/AdvReac Type Severity Reaction Status Date / Time Penicillins [PENICILLINS] Allergy Unknown Verified 03/23/20 12:57 Exam Vital signs and Labs for Last 24 Hours: Temp Pulse Resp BP Pulse Ox 98.4 F 92 H 18 121/70 97 10/19/20 07:29 10/19/20 07:29 10/19/20 07:29 10/19/20 07:29 10/19/20 07:29 Laboratory Results - last 24 hr 10/18/20 11:41: POC Glucose 302 H* 10/18/20 16:35: POC Glucose 337 H* 10/18/20 20:01: POC Glucose 298 H 10/19/20 05:10: POC Glucose 375 H* I & O for Last 24 hours: Intake & Output 10/16/20 10/17/20 10/18/20 10/19/20 11:59 11:59 11:59 11:59 Intake Total 2587 / 2587 2843 / 2843 Output Total 800 / 800 Balance 1787 / 1787 2843 / 2843 Weight 205 lb 5 oz 210 lb 1 oz - Constitutional no acute distress - *Routine HEENT Exam Head: Present: normocephalic Eye: Present: EOMI, PERRL ENT: Present: mucous membranes moist - *R
[2020-10-19 11:49] LABS: POC Glucose,Bedside 333 (70-110)
[2020-10-19 14:24] VITALS: BMI 29.2
--- NOTE | 2020-10-19 14:37 | HMH.DCSUM ---
General - General Admission date:: 10/17/20 Discharge date: 10/19/20 HPI HPI: 54 yr old male presented to ED via ambulance. Per pt he talked to his daughter at 8 am and then she was unable to reach him. at 1130 her boyfriend went back to the house and was still unable to get him to answer the door and called 911 for welfare check. daughter says about 45 mins later they arrived. Pt was found on his kitchen floor unresponsive. Pt admits to snorting heroin yesterday but states none today. Pt states for over one week he has lost feeling in rt arm and leg and having problems using them. Pt states he is taking all his DM meds. pt admitted for elevated KCL, WBC,trop, cre, ABG abnormal and monitoring. Hospital Course Hospital Course: Laboratory Tests 10/17/20 10/17/20 10/17/20 14:00 14:00 14:00 WBC 22.1 H* RBC 5.17 Hgb 15.5 Hct 47.7 MCV 92.2 MCH 29.9 MCHC 32.4 RDW 14.1 Plt Count 227 MPV 8.0 Neut % (Auto) 91.5 H Lymph % (Auto) 4.8 L [place] % (Auto) 3.1 Eos % (Auto) 0.4 Baso % (Auto) 0.3 Neut # (Auto) 20.3 H Lymph # (Auto) 1.1 [place] # (Auto) 0.7 Eos # (Auto) 0.1 Baso # (Auto) 0.1 Total Counted 100 Neutrophils % (Manual) 82 H Lymphocytes % (Manual) 11 Monocytes % (Manual) 7 Platelet Estimate Normal RBC Morphology Normal VBG pH VBG pCO2 VBG pO2 VBG HCO3 VBG Total CO2 VBG O2 Saturation VBG Base Excess Sodium 134 L Potassium 6.0 H Chloride 94 L Carbon Dioxide 25 Anion Gap 21.0 H BUN 42 H Creatinine 1.40 H Estimated Creat Clear 88 Estimated GFR 53 L Est GFR ( Amer) 64 Glucose 914 H* POC Glucose Random Glucose Lactate Calcium 8.8 Magnesium 2.2 Total Bilirubin 0.5 AST 104 H ALT 409 H* Alkaline Phosphatase 146 H Total Creatine Kinase 233 H Troponin I 0.05 H Total Protein 7.1 Albumin 4.3 Globulin 2.8 Albumin/Globulin Ratio 1.5 Urine Color Urine Appearance Urine pH Ur Specific [place] Urine Protein Urine Glucose (UA) Urine Ketones Urine Blood Urine Nitrate Urine Bilirubin Urine Urobilinogen Ur Leukocyte Esterase Urine RBC Urine WBC Ur Squamous Epith Cells Urine Bacteria Urine Opiates Screen Urine Methadone Screen Ur Barbituates Screen Ur Phencyclidine Scrn Ur Amphetamines Screen U Benzodiazepines Scrn Urine Cocaine Screen U Marijuana (THC) Screen Plasma/Serum Alcohol Acetone Level SARS-CoV-2 (PCR) Influenza A Untype (PCR) Influenza Type B (PCR) 10/17/20 10/17/20 10/17/20 14:00 14:00 14:30 WBC RBC Hgb Hct MCV MCH MCHC RDW Plt Count MPV Neut % (Auto) Lymph % (Auto) [place] % (Auto) Eos % (Auto) Baso % (Auto) Neut # (Auto) Lymph # (Auto) [place] # (Auto) Eos # (Auto) Baso # (Auto) Total Counted Neutrophils % (Manual) Lymphocytes % (Manual) Monocytes % (Manual) Platelet Estimate RBC Morphology VBG pH VBG pCO2 VBG pO2 VBG HCO3 VBG Total CO2 VBG O2 Saturation VBG Base Excess Sodium Potassium Chloride Carbon Dioxide Anion Gap BUN Creatinine Estimated Creat Clear Estimated GFR Est GFR ( Amer) Glucose POC Glucose Random Glucose Lactate Calcium Magnesium Total Bilirubin AST ALT Alkaline Phosphatase Total Creatine Kinase Troponin I Total Protein Albumin Globulin Albumin/Globulin Ratio Urine Color Yellow Urine Appearance Clear Urine pH 6.0 Ur Specific [place] <= 1.005 Urine Protein Negative Urine Glucose (UA) 3+ Urine Ketones Negative Urine Blood 2+ Urine Nitrate Negative Urine Bilirubin Negative Urine Urobilinogen 0.2 Ur Leukocyte Esterase Negative Urine RBC 3-5 Urine WBC
--- NOTE | 2020-10-21 14:19 | CARE MANAGER ---
Laboratory Tests 10/17/20 10/17/20 10/17/20 14:00 14:00 14:00 WBC 22.1 H* RBC 5.17 Hgb 15.5 Hct 47.7 MCV 92.2 MCH 29.9 MCHC 32.4 RDW 14.1 Plt Count 227 MPV 8.0 Neut % (Auto) 91.5 H Lymph % (Auto) 4.8 L [place] % (Auto) 3.1 Eos % (Auto) 0.4 Baso % (Auto) 0.3 Neut # (Auto) 20.3 H Lymph # (Auto) 1.1 [place] # (Auto) 0.7 Eos # (Auto) 0.1 Baso # (Auto) 0.1 Total Counted 100 Neutrophils % (Manual) 82 H Lymphocytes % (Manual) 11 Monocytes % (Manual) 7 Platelet Estimate Normal RBC Morphology Normal VBG pH VBG pCO2 VBG pO2 VBG HCO3 VBG Total CO2 VBG O2 Saturation VBG Base Excess Sodium 134 L Potassium 6.0 H Chloride 94 L Carbon Dioxide 25 Anion Gap 21.0 H BUN 42 H Creatinine 1.40 H Estimated Creat Clear 88 Estimated GFR 53 L Est GFR ( Amer) 64 Glucose 914 H* POC Glucose Random Glucose Lactate Calcium 8.8 Magnesium 2.2 Total Bilirubin 0.5 AST 104 H ALT 409 H* Alkaline Phosphatase 146 H Total Creatine Kinase 233 H Troponin I 0.05 H Total Protein 7.1 Albumin 4.3 Globulin 2.8 Albumin/Globulin Ratio 1.5 Urine Color Urine Appearance Urine pH Ur Specific [place] Urine Protein Urine Glucose (UA) Urine Ketones Urine Blood Urine Nitrate Urine Bilirubin Urine Urobilinogen Ur Leukocyte Esterase Urine RBC Urine WBC Ur Squamous Epith Cells Urine Bacteria Urine Opiates Screen Urine Methadone Screen Ur Barbituates Screen Ur Phencyclidine Scrn Ur Amphetamines Screen U Benzodiazepines Scrn Urine Cocaine Screen U Marijuana (THC) Screen Plasma/Serum Alcohol Acetone Level SARS-CoV-2 (PCR) Influenza A Untype (PCR) Influenza Type B (PCR) 10/17/20 10/17/20 10/17/20 14:00 14:00 14:30 WBC RBC Hgb Hct MCV MCH MCHC RDW Plt Count MPV Neut % (Auto) Lymph % (Auto) [place] % (Auto) Eos % (Auto) Baso % (Auto) Neut # (Auto) Lymph # (Auto) [place] # (Auto) Eos # (Auto) Baso # (Auto) Total Counted Neutrophils % (Manual) Lymphocytes % (Manual) Monocytes % (Manual) Platelet Estimate RBC Morphology VBG pH VBG pCO2 VBG pO2 VBG HCO3 VBG Total CO2 VBG O2 Saturation VBG Base Excess Sodium Potassium Chloride Carbon Dioxide Anion Gap BUN Creatinine Estimated Creat Clear Estimated GFR Est GFR ( Amer) Glucose POC Glucose Random Glucose Lactate Calcium Magnesium Total Bilirubin AST ALT Alkaline Phosphatase Total Creatine Kinase Troponin I Total Protein Albumin Globulin Albumin/Globulin Ratio Urine Color Yellow Urine Appearance Clear Urine pH 6.0 Ur Specific [place] <= 1.005 Urine Protein Negative Urine Glucose (UA) 3+ Urine Ketones Negative Urine Blood 2+ Urine Nitrate Negative Urine Bilirubin Negative Urine Urobilinogen 0.2 Ur Leukocyte Esterase Negative Urine RBC 3-5 Urine WBC None Ur Squamous Epith Cells None Urine Bacteria None Urine Opiates Screen Urine Methadone Screen Ur Barbituates Screen Ur Phencyclidine Scrn Ur Amphetamines Screen U Benzodiazepines Scrn Urine Cocaine Screen U Marijuana (THC) Screen Plasma/Serum Alcohol < 10 Acetone Level None detected SARS-CoV-2 (PCR) Influenza A Untype (PCR) Influenza Type B (PCR) 10/17/20 10/17/20 10/17/20 14:30 14:33 14:50 WBC RBC Hgb Hct MCV MCH MCHC RDW Plt Count MPV Neut % (Auto) Lymph % (Auto) [place] % (Auto) Eos % (Auto) Baso % (Auto) Neut # (Auto) Lymph # (Auto) [place] # (Auto) Eos # (Auto) Baso # (Auto) Total Counted Neutrophils % (M
== END 2020-10-19 16:00 | disposition home or self-care (01) | DRG 918 ==
LOC: ER 14:55 → 2ND 16:24
PROVIDERS: Nurse Practitioner Family; Admitting Provider Emergency Medicine; Emergency Provider Emergency Medicine; PCP Emergency Medicine; Visit Provider Emergency Medicine
DX: T40.1X1A Poisoning by heroin, accidental (unintentional), initial encounter (principal); N17.9 Acute kidney failure, unspecified; M62.82 Rhabdomyolysis; J44.9 Chronic obstructive pulmonary disease, unspecified; E11.9 Type 2 diabetes mellitus without complications; Z79.84 Long term (current) use of oral hypoglycemic drugs; Z88.0 Allergy status to penicillin; I10 Essential (primary) hypertension; F17.210 Nicotine dependence, cigarettes, uncomplicated; R73.9 Hyperglycemia, unspecified; E87.5 Hyperkalemia; R77.8 Other specified abnormalities of plasma proteins; I25.10 Atherosclerotic heart disease of native coronary artery without angina pectoris; R20.2 Paresthesia of skin
CPT/HCPCS: 70460; 71045; 71046; 80048; 80053; 80305; 81001; 82009; 82550; 82803; 82947; 82962; 83605; 83735; 84484; 85007; 85025; 87040; 93005; 93306; 94640; 96365; 96375; 99285; 99291; J2405; Q9967; U0003

== ENCOUNTER 2023-08-17 13:19 | Outpatient (CLI) | payer MEDICAID, SELFPAY ==
--- NOTE | 2023-08-17 13:27 | XR_ITS ---
FINAL REPORT CLINICAL HISTORY: LT SHOULDER PAIN FINDINGS: Left shoulder Three views were obtained. There is no acute fracture or dislocation. There is mild AC and glenohumeral joint degenerative change. No soft tissue abnormality is identified. IMPRESSION: Mild degenerative changes. Reviewed, Interpreted and Dictated by Steve Peck III, MD Transcribed by Romi Aleman Authenticated and [facility]
== END 2023-08-17 23:59 | disposition home or self-care (01) ==
LOC: RAD 13:22
PROVIDERS: PCP Nurse Practitioner; Visit Provider Nurse Practitioner
DX: M25.512 Pain in left shoulder (principal)
CPT/HCPCS: 73030

== ENCOUNTER 2023-10-20 14:26 | Emergency (ER) | payer OTHER, SELFPAY ==
[2023-10-20 14:40] VITALS: BP 149/88; PULSE 80; RESP 24; TEMP 36.4; O2SAT 95; BMI 36.6
--- NOTE | 2023-10-20 14:44 | EXP.UTC ---
Discharge Plan Disposition Patient Disposition: Home, Self-Care Condition: Good Prescriptions Prescriptions: New benzonatate 100 mg capsule 100 mg PO TIDP PRN (Reason: Cough) Qty: 30 0RF methylprednisolone 4 mg Tablets,Dose Pack 4 mg PO DIRECTED 6 Days Qty: 21 0RF Rx Instructions: Take 1 pack as directed for 6 days guaifenesin [Mucinex] 600 mg tablet extended release 12hr 600 - 1,200 mg PO BIDP PRN (Reason: Congestion) Qty: 30 0RF azithromycin [Zithromax] 250 mg tablet 250 mg PO UD DOSE PK Qty: 6 0RF Rx Instructions: Take two (2) tablets today, then one (1) tablet days #2 thru #5 No Action lisinopril 10 mg tablet See Rx Instructions .ROUTE .COMPLEX Qty: 90 0RF Dose Instruction: TAKE ONE TABLET BY MOUTH EVERY DAY FOR BLOOD PRESSURE Rx Instructions: TAKE ONE TABLET BY MOUTH EVERY DAY FOR BLOOD PRESSURE glipizide 5 mg tablet 5 mg PO DAILY meloxicam 15 mg tablet 15 mg PO DAILY allopurinol 100 mg tablet 100 mg PO DAILY albuterol sulfate [Ventolin HFA] 90 mcg/actuation HFA aerosol inhaler 2 puff INHALATION Q6HP PRN (Reason: SOA) insulin asp prt-insulin aspart 100 unit/mL (70-30) insulin pen See Rx Instructions .ROUTE .COMPLEX Rx Instructions: BID metformin 1,000 mg tablet 1,000 mg PO DAILY Rx Instructions: TAKE 1 TABLET BY MOUTH TWICE DAILY Referrals Follow up/Referrals: Cinthia Zuluaga APRN [Primary Care Provider] - See instructions Activity Restrictions/Add. Instructions Additional Instructions/Restrictions: Drink plenty of fluids. Take tylenol or ibuprofen for pain or fever. Take the medications as directed. Follow up with your regular doctor. GO TO THE ER FOR ANY WORSENING SYMPTOMS Clinical Impressions Clinical Impression: COPD exacerbation Instructions Patient Instructions: Chronic Obstructive Pulmonary Disease, DI for Chronic Obstructive Pulmonary Disease Discharge ED Provider: Jaiden Arteaga [facility] [place] General Stated complaint: chest congestion Time Seen by Provider: 10/20/23 14:44 History of Present Illness Provider Complaint: He states that for the past 5 days he has had worsening chest congestion, productive cough with yellowish sputum, sinus congestion, and sore throat. He has a history of copd. Related Data Home Medications Medication Instructions Recorded Confirmed glipizide 5 mg tablet 5 mg PO DAILY Diabetes 03/09/20 10/20/23 albuterol sulfate 90 mcg/actuation 2 puff inhalation Q6HP PRN SOA 10/20/23 10/20/23 aerosol inhaler (Ventolin HFA) allopurinol 100 mg tablet 100 mg PO DAILY 10/20/23 10/20/23 insulin aspar prot-insulin aspart See Rx Instructions .Route .COMPLEX 10/20/23 10/20/23 100 unit/mL (70-30) subcutaneous pen meloxicam 15 mg tablet 15 mg PO DAILY 10/20/23 10/20/23 metformin 1,000 mg tablet 1,000 mg PO DAILY 10/20/23 10/20/23 Previous Rx's Medication Instructions Recorded lisinopril 10 mg tablet See Rx Instructions .Route 12/28/20 .COMPLEX #90 tabs azithromycin 250 mg tablet 250 mg PO UD DOSE PK #6 tabs 10/20/23 (Zithromax) benzonatate 100 mg capsule 100 mg PO TIDP PRN Cough #30 caps 10/20/23 guaifenesin 600 mg tablet, 600 - 1,200 mg (1 - 2 x 600 mg) PO 10/20/23 extended release 12 hr (Mucinex) BIDP PRN Congestion #30 tabs methylprednisolone 4 mg tablets in 4 mg PO DIRECTED 6 days #21 tabs 10/20/23 a dose pack Allergies Allergy/AdvReac Type Severity Reaction Status Date / Time Penicillins [PENICILLINS] Allergy Unknown Verified 03/23/20 12:57 [facility] Disclaimer: The information contained in this section may have been updated after the patient was seen, as this information can be updated by other users. Medical History (Updated 10/20/23 @ 15:30 by Jaiden Arteaga APRN) History of gastroesophageal reflux (GERD) Diabetes mellitus, type 2 Asthma Hyperlipidemia Hypertension COPD (chronic obstructive pulmonary disease) Tobacco dependence syndrome Coronary artery calcification seen on CT scan Surgical History (Updated 10/20/23 @ 14:48 by Socorro Blair RN) History of ankle surgery Social History Smoking Status: Current every day smoker tobacco type: cigarettes packs per day: 1 second hand exposure: No alcohol intake: never substance use type: denies use current occupational status: disabled Travel in the last 8 weeks: None household members: none housing: house current occupational exposures/hazards: No ROS Obtained: Yes All systems reviewed & no additional complaints except as documented Constitutional Constitutional: Reports poor appetite Eyes Eyes: Reports system reviewed and no additional complaints, except as documented ENT Ears, Nose, Mouth, and Throat: Reports as per HPI Cardiovascular Cardiovascular: Reports system reviewed and no additional complaints, except as documented and Denies chest pain Respiratory Respiratory: Denies shortness of breath, Reports chest congestion, Reports cough, Denies stridor and Denies wheezing Gastrointestinal Gastrointestingal: Reports system reviewed and no additional complaints, except as documented; Denies abdominal pain, diarrhea or vomiting Musculoskeletal Musculoskeletal: Reports system reviewed and no additional complaints, except as documented and Denies arthralgias Integumentary/Breasts Skin/Breast: Reports system reviewed and no additional complaints, except as documented and Denies rash Neurologic Neurologic: Denies paresthesias Allergic/Immunologic Allergic/Immunologic: Denies wheezing Physical Exam General General appearance: alert and in no apparent distress Eye Eye exam: Present normal appearance, PERRL and EOMI ENT ENT exam: Present mucous membranes moist and normal external ear exam Expanded ENT Exam External ear exam: Present normal external inspection TM/Canal exam: Bilateral TM: erythema and bulging Nose exam: Absent sinus tenderness Nasal speculum exam: Bilateral: normal Mouth exam: Present normal external inspection; Absent drooling Teeth exam: Present normal inspection Throat exam: Present tonsillar erythema and tonsillomegaly Neck Neck exam: Present normal inspection, full ROM and trachea midline; Absent tenderness, lymphadenopathy or thyromegaly Chest Chest inspection: Present normal inspection and symmetric chest wall rise; Absent tenderness or rash Respiratory Respiratory exam: Present normal lung sounds bilaterally; Absent respiratory distress, wheezes, stridor or accessory muscle use Cardiovascular Cardiovascular exam: Present regular rate, normal rhythm and normal heart sounds Abdominal Exam Abdominal exam: Present soft; Absent distention, tenderness, guarding, rebound or rigidity Extremities Exam Extremities exam: Present normal inspection, full ROM and normal capillary refill; Absent tenderness or calf tenderness Back Exam Back exam: Present normal inspection and full ROM; Absent tenderness Neurological Exam Neurological exam: Present alert and oriented X3 Psychiatric Psychiatric exam: Present normal affect and normal mood Skin Skin exam: Present warm, dry, intact and normal color Lymphatic Lymphatic Findings: no adenopathy Medical Decision Making Medical Records Medical records reviewed: No I reviewed the patient's medical records. Ivan Inquiry Pt receiving controlled substance: No
[2023-10-20 15:31] VITALS: BP 149/88; PULSE 80; RESP 24; TEMP 36.4; O2SAT 95
== END 2023-10-20 15:33 | disposition home or self-care (01) ==
PROVIDERS: Emergency Provider Nurse Practitioner Family; PCP Nurse Practitioner
DX: J44.1 Chronic obstructive pulmonary disease with (acute) exacerbation (principal); R05.8 Other specified cough; R07.0 Pain in throat; R09.81 Nasal congestion; F17.210 Nicotine dependence, cigarettes, uncomplicated
CPT/HCPCS: 99204; 99212; G0463

== ENCOUNTER 2023-11-17 15:48 | Outpatient (CLI) | payer OTHER, SELFPAY ==
[2023-11-17 16:31] LABS: Blood Urea Nitrogen 39 mg/dl (9-20); Estimated Glomerular Filt Rate 57 ml/min (>60); GFR (African American) 69 ML/MIN (>60)
== END 2023-11-17 23:59 | disposition home or self-care (01) ==
LOC: LAB 15:48
PROVIDERS: PCP Nurse Practitioner; Visit Provider Nurse Practitioner
DX: G56.00 Carpal tunnel syndrome, unspecified upper limb (principal); I10 Essential (primary) hypertension; E11.9 Type 2 diabetes mellitus without complications; F17.210 Nicotine dependence, cigarettes, uncomplicated; Z79.84 Long term (current) use of oral hypoglycemic drugs; Z79.85 Long-term (current) use of injectable non-insulin antidiabetic drugs; Z79.4 Long term (current) use of insulin
CPT/HCPCS: 36415; 82565; 84520

== ENCOUNTER 2023-11-20 14:27 | Outpatient (CLI) | payer OTHER, SELFPAY ==
--- NOTE | 2023-11-20 14:30 | MR_ITS ---
FINAL REPORT CLINICAL HISTORY: MEDIAN NERVE COMPRESSION left shoulder pain COMPARISON: None FINDINGS: Multiplanar MR imaging of the left shoulder was performed without and with contrast. Supraspinatus and infraspinatus tendinosis is noted. There is a focal full-thickness tear of the posterior supraspinatus tendon measuring 9 mm in AP dimension. There is also a small full-thickness tear of the distal infraspinatus tendon measuring 4 mm in AP dimension. There is mild AC joint arthrosis. Spurring along the undersurface of the acromion is noted. There is a small amount of fluid in the joint and bursa. Labral degeneration is noted with findings consistent with a SLAP tear. The long head of the biceps tendon is intact. There is mild glenohumeral degenerative change with mild chondromalacia. No significant glenohumeral joint effusion is seen. There is no evidence of fracture or dislocation. The musculature is intact. There is no evidence of soft tissue mass. There is mild edema and contrast enhancement in the proximal triceps muscle which may be due to inflammation, mild injury, or possibly denervation. No other areas of abnormal contrast enhancement are seen. IMPRESSION: Focal tears of the infraspinatus and supraspinatus tendons. SLAP tear. Abnormal signal and enhancement in the proximal triceps muscle with differential diagnosis including inflammation, mild injury, or possible denervation. Reviewed, Interpreted and Dictated by Steve Peck III, MD Transcribed by Kaitlin Patel Authenticated and [facility]
[2023-11-20] MEDS: SODIUM CHLORIDE 0.9% 10ML SYR (RAD ONLY) 10 ML IV (15:34)
[2023-11-20] MEDS: GADOTERIDOL INJ 20ML SYRINGE 20 ML IV (15:35)
[2023-11-20] MEDS: GADOTERIDOL INJ 10ML SYRINGE 5 ML IV (15:35)
== END 2023-11-20 23:59 | disposition home or self-care (01) ==
LOC: RAD 14:28
PROVIDERS: PCP Nurse Practitioner; Visit Provider Nurse Practitioner
DX: G56.02 Carpal tunnel syndrome, left upper limb (principal)
CPT/HCPCS: 73223; A9576

== ENCOUNTER 2024-02-16 11:37 | Outpatient (CLI) | payer OTHER, SELFPAY ==
--- NOTE | 2024-02-16 11:42 | XR_ITS ---
FINAL REPORT CLINICAL HISTORY: PAIN COMPARISON: None FINDINGS: Three views of the right knee reveal no evidence of fracture or dislocation. The bony alignment is normal. Mild and moderate degenerative changes present there is medial compartment narrowing present.. There is no evidence of joint effusion. No localized soft tissue abnormality is identified. IMPRESSION: Mild to moderate degenerative change, with medial compartment narrowing. Reviewed, Interpreted and Dictated by Steve Peck III, MD Transcribed by Jacinta Gonsalves Authenticated and [facility]
== END 2024-02-16 23:59 | disposition home or self-care (01) ==
LOC: RAD 11:38
PROVIDERS: PCP Nurse Practitioner; Visit Provider Nurse Practitioner
DX: M25.561 Pain in right knee (principal)
CPT/HCPCS: 73562

== ENCOUNTER 2024-04-24 15:33 | Outpatient (CLI) | payer OTHER, SELFPAY ==
[2024-04-24 15:58] LABS: Basophils # 0.1 K/mm3 (0-0.2); Basophils % 0.6 % (0.1-2.0); Eosinophils # 0.4 K/mm3 (0.0-0.4); Eosinophils % 3.7 % (0.1-12.0); Hematocrit 47.1 % (42.0-52.0); Hemoglobin 15.5 g/dL (14.1-18.0); Lymphocytes # 1.8 K/mm3 (0.7-4.5); Lymphocytes % 15.5 % (10-50); Mean Corpuscular HGB Conc 32.9 g/dL (31.8-35.4); Mean Corpuscular Hemoglobin 29.2 pg (27.0-31.2); Mean Corpuscular Volume 88.7 fl (80-94); Mean Platelet Volume 9.9 fl (7.4-10.4); Monocytes # 0.7 K/mm3 (0.1-1.0); Monocytes % 6.2 % (1.7-9.3); Neutrophils # 8.6 K/mm3 (1.8-7.8); Neutrophils % 73.6 % (37.0-80.0); Platelet Count 241 K/mm3 (142-424); Red Blood Count 5.31 M/mm3 (4.60-6.20); Red Cell Distribution Width 12.9 % (11.5-17.5); White Blood Count 11.7 K/mm3 (4.8-10.8)
[2024-04-24 16:38] LABS: Hemoglobin A1C 8.8 % (4.0-6.0)
[2024-04-24 16:55] LABS: Albumin Level 4.6 g/dl (3.5-5.0); Chloride 102 mmol/L (98-107); Sodium 137 mmol/L (136-145)
[2024-04-24 16:57] LABS: Alanine Aminotransferase 24 U/L (12-78); Aspartate Amino Transferase 28 U/L (17-59); Blood Urea Nitrogen 35 mg/dl (9-20); Estimated Glomerular Filt Rate 69 ml/min (>60); GFR (African American) 83 ML/MIN (>60)
[2024-04-24 16:58] LABS: Albumin/Globulin Ratio 1.7 (1.1-1.8); Alkaline Phosphatase 89 U/L (38-126); Bilirubin,Total 0.4 mg/dl (0.2-1.3); Calcium 9.6 mg/dl (8.4-10.2); Carbon Dioxide 25 mmol/L (22.0-30.0); Chol/HDL Ratio 5.6 (1-3.5); Cholesterol 213 mg/dl (140-200); Globulin 2.7 g/dL (1.3-3.2); Glucose 183 mg/dl (74-100); HDL Cholesterol 38 mg/dl (40-60); Total Protein,Serum 7.3 g/dl (6.3-8.2); Triglycerides 306 mg/dl (30-150); VLDL Cholesterol 61 mg/dL (0-40)
[2024-04-24 17:07] LABS: NT Pro Brain Natriuretic Pep. < 20.0 pg/mL (0-125)
[2024-04-24 17:15] LABS: Direct LDL Cholesterol 140.52 mg/dL (100-129)
[2024-04-24 18:07] LABS: 25-OH Vitamin D, Total 23.6 ng/mL (30-100)
== END 2024-04-24 23:59 | disposition home or self-care (01) ==
LOC: LAB 15:36
PROVIDERS: PCP Nurse Practitioner; Visit Provider Nurse Practitioner
DX: J44.9 Chronic obstructive pulmonary disease, unspecified (principal); E78.2 Mixed hyperlipidemia; E55.9 Vitamin D deficiency, unspecified; E11.9 Type 2 diabetes mellitus without complications; R06.02 Shortness of breath; Z72.0 Tobacco use; Z79.84 Long term (current) use of oral hypoglycemic drugs; Z79.85 Long-term (current) use of injectable non-insulin antidiabetic drugs
CPT/HCPCS: 36415; 80053; 80061; 82306; 83036; 83880; 85025

== ENCOUNTER 2024-05-08 11:59 | Outpatient (CLI) | payer OTHER, SELFPAY ==
--- NOTE | 2024-05-08 | CA_ITS ---
APPROVED REPORT Exam: Pharmacologic Technologist: Ruchi Acharya Ht: 5 ft 11 in Wt: 283 lbs BSA: 2.44 m2 HR: 78 bpm BP: 154/100 mmHg Rhythm: Nsr Medical History Medical History: HTN, Hyperlipidemia, Diabetes, Smoking Medications: Albuterol, Allopurinol, Breztri, Doxycycline hyclate, Glipizide, Meloxicam, Insulin asp prt-insulin aspart 100 unit/mL, Losartan-Hydrochlorothiazide, Metformin, Prednisone, Semaglutide, Aspirin, Rosuvastatin, Carvedilol Allergies: Penicillins Cardiac Risk Factors: HTN, Hyperlipidemia, Diabetes, FHX of CAD, Smoking Stress Test Details Test: Lexiscan HR Resting HR: 78 bpm Max Heart Rate (APMHR): 161.436619 bpm Target HR (85% APMHR): 136.145743 bpm Recovery HR: 90 bpm BP Resting BP: 154.0/100.0 mmHg Max BP: 181.0/103.0 mmHg Recovery BP: 158.0/90.0 mmHg ECG Resting ECG: Nsr Stress ECG Conclusion No cp Occasional PVCs <1.[address] segment changes Non-diagnostic lexiscan stress test Electronically signed by : Angeli Rodriguez MD 05/10/2024 00:15:08
--- NOTE | 2024-05-08 11:59 | NM_ITS ---
APPROVED REPORT Exam: Nuclear Stress Test Indication: htn,diabetes, hyperlipidemia, tob use, fm hx, c.p., sob Patient Location: Outpatient Stress Tech: Ruchi Acharya IN Tech:CASSIE Wheeler RT (R)(N)(M) Ht: 5 ft 11 in Wt: 285 lbs HR: 78 bpm BP: 154/100 mmHg BSA: 2.45 m2 TID: 1.11 BMI: 39.7 History: htn,diabetes, hyperlipidemia, tob use, fm hx, c.p., sob Procedure: Patient received 0.4 mg of intravenous Lexiscan, resting heart rate 78 bpm, resting blood pressure 154/100 mmHg, with Lexiscan maximum heart rate achieved was 103 bpm which is % of the maximum predicted heart rate and blood pressure was 141/87 mmHg. With Lexiscan, patient denied any complaint of chest pain. Cardiac Stress and Resting SPECT Images: Cardiac Stress and Resting SPECT images were obtained using technetium 99m Myoview 32.5 mCi stress and 10.10 mCi at rest. Raw images demonstrate significant soft tissue overlap with the cardiac borders. This may affect the diagnostic interpretation of the study findings. Resting and stress in supine positions demonstrate large sized, moderate, fixed perfusion defect in the basal to mid inferior LV wall. This is no longer visualized with prone stress imaging. Findings are suggestive of diaphragmatic attenuation in the setting of normal regional wall motion. Gated imaging demonstrates normal global and regional LV systolic function. LVEF is calculated at 57%. Conclusion: Diaphragmatic attenuation is present. No evidence of fixed or reversible perfusion defects. Gated imaging demonstrates normal global and regional LV systolic function. LVEF is calculated at 57%. Electronically signed by : Angeli Rodriguez MD 05/09/2024 11:15:45
[2024-05-08] MEDS: ISOTOPE MYOVIEW (PER STUDY) 1 DOSE IV (13:25)
[2024-05-08] MEDS: REGADENOSON 0.4MG/5ML SYRINGE 0.4 MG IV (13:25)
[2024-05-08] MEDS: SODIUM CHLORIDE 0.9% 10ML SYR (RAD ONLY) 10 ML IV ×2 (13:25)
== END 2024-05-08 23:59 | disposition home or self-care (01) ==
LOC: RAD 11:59
PROVIDERS: PCP Nurse Practitioner; Visit Provider Nurse Practitioner Family
DX: I25.118 Atherosclerotic heart disease of native coronary artery with other forms of angina pectoris (principal); R06.09 Other forms of dyspnea
CPT/HCPCS: 78452; 93017; 93018; 93306; A9502; J2785

== ENCOUNTER 2024-05-30 14:39 | Outpatient (CLI) | payer OTHER, SELFPAY ==
--- NOTE | 2024-05-30 14:43 | MR_ITS ---
FINAL REPORT TECHNIQUE: Multi plantar and multisequence imaging of the cervical spine was obtained before and after the administration of intravenous contrast. CLINICAL HISTORY: NEUROPATHIC PAIN, CERVICAL SPINE DEGENERATION left arm pain and loss of feeling in digits COMPARISON: None FINDINGS: There is normal alignment of the cervical vertebral bodies. Vertebral body height is preserved. Bone marrow signal intensity is normal. There is no edema or pathologic marrow replacement. The signal intensity within the substance of the spinal cord is normal. There is no paraspinal mass or fluid collection. C2-C3: There is no focal disc herniation, central stenosis or neural foraminal narrowing. C3-C4: Annular disc bulge with degenerative endplate changes and facet osteoarthropathy. Mild central canal stenosis. Severe bilateral neuroforaminal narrowing. C4-C5: Annular disc bulge with degenerative endplate changes and facet osteoarthropathy. Moderate central canal stenosis. Severe bilateral neuroforaminal narrowing. C5-C6: Annular disc bulge with degenerative endplate changes and facet osteoarthropathy. Moderate central canal stenosis. Severe right and moderate left neuroforaminal narrowing. C6-C7: Annular disc bulge with degenerative endplate changes and facet osteoarthropathy. Mild central canal stenosis. Mild to moderate bilateral neuroforaminal narrowing. C7-T1: Left paracentral protrusion causing mild left canal stenosis. Mild right and severe left neuroforaminal narrowing. Postcontrast images reveal no pathologic contrast enhancement. IMPRESSION: Left paracentral protrusion at C7-T1. Degenerative disc disease as above at each level with multilevel severe neuroforaminal narrowing. No abnormal enhancement. Reviewed, Interpreted and Dictated by Angélica Bocanegra MD Transcribed by Kaitlin Patel Authenticated and [facility]
[2024-05-30 15:11] LABS: Blood Urea Nitrogen 34 mg/dl (9-20); Estimated Glomerular Filt Rate 62 ml/min (>60); GFR (African American) 75 ML/MIN (>60)
[2024-05-30] MEDS: SODIUM CHLORIDE 0.9% 10ML SYR (RAD ONLY) 10 ML IV (15:45)
[2024-05-30] MEDS: GADOTERIDOL INJ 10ML SYRINGE 8 ML IV (15:45)
[2024-05-30] MEDS: GADOTERIDOL INJ 20ML SYRINGE 20 ML IV (15:45)
== END 2024-05-30 23:59 | disposition home or self-care (01) ==
LOC: RAD 14:40
PROVIDERS: PCP Nurse Practitioner; Visit Provider Nurse Practitioner
DX: M47.812 Spondylosis without myelopathy or radiculopathy, cervical region (principal); M79.2 Neuralgia and neuritis, unspecified
CPT/HCPCS: 36415; 72156; 82565; 84520; A9576

== ENCOUNTER 2024-07-22 16:19 | Outpatient (CLI) | payer OTHER, SELFPAY ==
[2024-07-22 17:32] LABS: Basophils % 0.4 % (0.1-2.0); Eosinophils # 0.3 K/mm3 (0.0-0.4); Eosinophils % 2.4 % (0.1-12.0); Hematocrit 41.4 % (42.0-52.0); Hemoglobin 14.3 g/dL (14.1-18.0); Lymphocytes # 2.4 K/mm3 (0.7-4.5); Lymphocytes % 21.7 % (10-50); Mean Corpuscular HGB Conc 34.5 g/dL (31.8-35.4); Mean Corpuscular Hemoglobin 30.4 pg (27.0-31.2); Mean Corpuscular Volume 87.9 fl (80-94); Mean Platelet Volume 9.8 fl (7.4-10.4); Monocytes # 0.7 K/mm3 (0.1-1.0); Monocytes % 6.4 % (1.7-9.3); Neutrophils # 7.5 K/mm3 (1.8-7.8); Neutrophils % 68.8 % (37.0-80.0); Nucleated Red Blood Cells # 0 10^3/uL; Nucleated Red Blood Cells % 0 %; Platelet Count 235 K/mm3 (142-424); Red Blood Count 4.71 M/mm3 (4.60-6.20); Red Cell Distribution Width 12.8 % (11.5-17.5); White Blood Count 10.9 K/mm3 (4.8-10.8)
[2024-07-22 18:00] LABS: Albumin Level 4.7 g/dl (3.5-5.0); Chloride 104 mmol/L (98-107)
[2024-07-22 18:01] LABS: Potassium 4.2 mmoL/L (3.5-5.1); Sodium 140 mmol/L (136-145)
[2024-07-22 18:05] LABS: Alanine Aminotransferase 23 U/L (12-78); Alkaline Phosphatase 74 U/L (38-126); Anion Gap 15.2 mEq/L (5-15); Aspartate Amino Transferase 24 U/L (17-59); Bilirubin,Direct 0.3 mg/dl (0.0-0.4); Bilirubin,Indirect 0.3 mg/dL (0.0-0.9); Bilirubin,Total 0.6 mg/dl (0.2-1.3); Bilirubin,Unconjugated 0.3 mg/dL (0.0-1.1); Blood Urea Nitrogen 33 mg/dl (9-20); Calcium 9.7 mg/dl (8.4-10.2); Carbon Dioxide 25 mmol/L (22.0-30.0); Chol/HDL Ratio 2.8 (1-3.5); Cholesterol 137 mg/dl (140-200); Estimated Glomerular Filt Rate 69 ml/min (>60); GFR (African American) 83 ML/MIN (>60); Glucose 190 mg/dl (74-100); HDL Cholesterol 49 mg/dl (40-60); Magnesium 1.7 mg/dl (1.6-2.3); Total Protein,Serum 7.4 g/dl (6.3-8.2); Triglycerides 124 mg/dl (30-150); VLDL Cholesterol 25 mg/dL (0-40)
[2024-07-22 18:15] LABS: Direct LDL Cholesterol 62.35 mg/dL (100-129)
[2024-07-22 18:26] LABS: Free T4 (Free Thyroxine) 0.97 ng/dl (0.78-2.19)
[2024-07-22 18:35] LABS: Thyroid Stimulating Hormone 1.59 uIU/mL (0.465-4.68)
== END 2024-07-22 23:59 | disposition home or self-care (01) ==
LOC: LAB 16:21
PROVIDERS: Nurse Practitioner Family; PCP Nurse Practitioner; Visit Provider Specialist
DX: R94.31 Abnormal electrocardiogram [ECG] [EKG] (principal); I25.10 Atherosclerotic heart disease of native coronary artery without angina pectoris; E78.5 Hyperlipidemia, unspecified; E66.811 Obesity, class 1; J44.9 Chronic obstructive pulmonary disease, unspecified; I10 Essential (primary) hypertension; E11.69 Type 2 diabetes mellitus with other specified complication; F17.200 Nicotine dependence, unspecified, uncomplicated
CPT/HCPCS: 36415; 80048; 80061; 80076; 83735; 84439; 84443; 85025

== ENCOUNTER 2024-08-12 15:29 | Outpatient (CLI) | payer OTHER, SELFPAY ==
--- NOTE | 2024-08-12 15:33 | CT_ITS ---
PROCEDURE INFORMATION: Exam: CT Cervical Spine Without Contrast Exam date and time: 08/12/2024 4:17 PM Age: 58 years old Clinical indication: Neck pain TECHNIQUE: Imaging protocol: Computed tomography of the cervical spine without contrast. Radiation optimization: All CT scans at this facility use at least one of these dose optimization techniques: automated exposure control; mA and/or kV adjustment per patient size (includes targeted exams where dose is matched to clinical indication); or iterative reconstruction. COMPARISON: MR CERVICAL SPINE WO/W CON 05/30/2024 2:58 PM FINDINGS: Bones: No acute fracture of the cervical spine. No subluxation or dislocation of the cervical spine. Intervertebral disc space narrowing C3 through C7 may represent degenerative disc disease.. Anterior osteophyte formation C3 through C7. Posterior osteophyte formation C3 through C7. Degenerative changes in the facets at multiple levels. Degenerative changes at C1/C2 Lungs: Emphysematous changes in the apices Thyroid: The thyroid is unremarkable Soft tissues: Unremarkable. IMPRESSION: 1. No acute fracture of the cervical spine. 2. No subluxation or dislocation of the cervical spine. 3. Intervertebral disc space narrowing C3 through C7 may represent degenerative disc disease..
== END 2024-08-12 23:59 | disposition home or self-care (01) ==
LOC: RAD 15:30
PROVIDERS: PCP Nurse Practitioner; Visit Provider Neurological Surgery
DX: M54.2 Cervicalgia (principal); M54.12 Radiculopathy, cervical region; M62.81 Muscle weakness (generalized)
CPT/HCPCS: 72125